=== PATIENT | male | born 1980 | race Two or more races ===

== ENCOUNTER 2020-10-15 11:51 | Emergency (ER) | payer OTHER, SELFPAY ==
--- NOTE | ~2020-10-15 | CT_ITS ---
EXAMINATION: CT ABDOMEN AND PELVIS WITHOUT CONTRAST CLINICAL INFORMATION: Left flank pain. Evaluate for stone. COMPARISON: None TECHNIQUE: Multidetector volumetric imaging was performed from the superior aspect of the liver through the pubic symphysis. Sagittal and coronal reformatted images were obtained on the technologist's workstation. This CT examination was performed using dose optimization techniques as appropriate, variously including the following: *Automated exposure control *Adjustment of mA and/or kV according to patient size (this includes techniques or standardized protocols for targeted exams where dose is matched to indication/reason for exam; i.e. extremities or head) *Use of iterative reconstruction technique DLP: 516 mGy-cm FINDINGS: LUNG BASES: Normal. No pulmonary consolidation or pleural effusion at either lung base. LIVER: The liver has normal size, shape, and attenuation. No evidence of liver mass. GALLBLADDER AND BILIARY TREE: No radiopaque gallstones, wall thickening or pericholecystic fluid. No intrahepatic or extrahepatic bile duct dilatation. PANCREAS: Normal. No evidence of edema, pancreatic ductal dilatation or mass. SPLEEN: Normal. ADRENAL GLANDS: Normal. KIDNEYS AND URETERS: Kidneys are normal in size. No right-sided renal stones. 0.4 cm calyceal stone is present in the lateral interpolar region of the left kidney. Mild left hydronephrosis and perinephric edema are caused by a 0.4 cm stone at the L2-L3 level of the ureter. The distal ureter is unremarkable. BLADDER: Normal. BOWEL AND PERITONEUM: Stomach is unremarkable. No dilated loops of bowel. The appendix is normal. No overt bowel wall thickening or mesenteric fat stranding. No ascites or pneumoperitoneum. ABDOMINAL WALL: Unremarkable. VASCULATURE: Unremarkable. LYMPH NODES: No pathologic sized lymph nodes in the abdomen or pelvis. No inguinal lymphadenopathy. PELVIC VISCERA: Prostate gland, which is normal in size, has calcifications in its more central zones. No pelvic mass or free fluid. SKELETAL: Unremarkable. CT/CT abdomen pelvis wo con IMPRESSION: Mild left hydronephrosis and perinephric edema are caused by a 0.4 cm stone in the proximal ureter. The left kidney has a 0.4 cm calyceal stone, as well. There are no right renal calculi.
[2020-10-15 12:00] VITALS: BP 141/87; PULSE 94; RESP 18; TEMP 36.9; O2SAT 98; BMI 31.5
--- NOTE | 2020-10-15 12:15 | ED.ABDPAIN ---
HPI - Abdominal Pain General Chief Complaint: Abdominal Pain Stated Complaint: abd pain Time Seen by Provider: 10/15/20 12:13 Source: patient and EMS Mode of arrival: EMS Limitations: no limitations History of Present Illness HPI narrative: [age] year male came in for evaluation of lower abdominal pain. Pain started about 2 hours ago, as a sudden onset, pain is localized to the left flank area radiating down to the left groin area, pain started after having bowel movement. Patient describes the pain as constant but comes in waves severity is 10/10, pain is associated with nausea and vomiting. Patient had similar pain in the past when to [facility] but patient does recall what was the diagnosis then. Related Data Previous Rx's Medication Instructions Recorded ondansetron HCl [Zofran] 4 mg PO Q8H PRN #10 tab 10/15/20 oxycodone 5 mg PO Q8H PRN #10 tab 10/15/20 Allergies Allergy/AdvReac Type Severity Reaction Status Date / Time No Known Allergies Allergy Verified 10/15/20 12:02 Review of Systems Review of Systems All other systems are reviewed and are negative Constitutional: Reports as per HPI and Reports no additional constitutional complaints Eyes: Reports as per HPI and Reports no additional eye complaints Reports system reviewed and no additional complaints, except as documented Cardiovascular: Reports as per HPI and Reports no additional cardiovascular complaints Respiratory: Reports as per HPI and Reports no additional respiratory complaints Gastrointestinal: Reports as per HPI and Reports no additional gastrointestinal complaints Genitourinary: Reports no additional female genitourinary complaints Musculoskeletal: Reports no additional musculoskeletal complaints Skin/Breast: Reports system reviewed and no additional complaints, except as docu Psychiatric: Reports no additional psychiatric complaints Endocrine: Reports no additional endocrine complaints Hematologic/Lymphatic: Reports no additional hematologic/lymphatic complaints Allergic/Immunologic: Reports no additional allergic/immunologic complaints Reports system reviewed and no additional complaints, except as documented and Reports Abnormal speech present Physical Exam Vital Signs: Vital Signs: Last Vital Signs Temp 98.4 F 10/15/20 12:00 Pulse 94 10/15/20 12:00 Resp 16 10/15/20 12:57 BP 141/87 H 10/15/20 12:00 Pulse Ox 98 10/15/20 12:00 Body Mass Index 31.5 Vital signs have been reviewed as appeared to be correct. Blood pressure normal. Heart rate normal. Respiration rate normal. Temperature normal. Oxygen saturation normal. Appearance: Alert. Oriented X3. No acute distress. Head: Normal external exam. Normocephalic. Atraumatic. No Shipley signs noted. No raccoon eyes noted Eyes: PERRLA. EOMI. Conjunctiva and sclera normal. Eyelids normal. ENT: TM's Normal. Pharynx normal. Uvula midline. Moist mucous membranes. No trismus noted. No drooling noted. No muffled voice noted. Neck: Normal inspection. Neck supple. FROM. No adenopathy. Thyroid Normal. No meningeal signs. No neck mass noted. CVS: Normal heart rate and rhythm. Heart sound normal. No murmurs noted. Pulses normal throughout. Respiratory: No respiratory distress. Painless inspiration. Breath sounds normal. No wheezes/rales/rhonchi noted. Chest nontender. No accessory muscle usage noted or decreased air movement noted. Abdomen: Soft, left lower abdominal tenderness, no rebound tenderness, no guarding.. Bowel sounds normal in all 4 quadrants. No distention noted. No organomegaly noted. No visible injury noted. Back: Mild left CVA tenderness. Full range of motion noted. Skin: Skin warm and dry. Normal skin color. Normal skin turgor. No rashes/lesions/lacerations noted. Extremities: No lower extremity edema. Extremities exhibit normal range of motion. Extremities nontender. Neuro: Oriented X 3. No motor deficit. No sensory deficit. Reflexes normal. Course Course Course Narrative: Assessment and plan. 40-year-old male came in with abdominal pain/left flank pain. Physical exam, UA, and CT finding are consistent with 4 mm stone at the proximal left ureter. Patient's symptoms is better after pain medication and Zofran. As discussed with the patient discharged to drink plenty of fluids, use Zofran/pain medication as an outpatient. MDM - Abdominal Pain Lab Data Attestation: I reviewed the patient's lab results. Result diagrams: 10/15/20 12:34 10/15/20 12:34 Labs: Lab Results 10/15/20 10/15/20 10/15/20 Range/Units 12:34 12:34 12:34 WBC 6.3 (4.8-10.8) X10*3/uL RBC 4.78 (4.60-5.80) X10*6/uL Hgb 14.0 (14.0-18.0) g/dl Hct 41.2 L (42-52) % MCV 86.2 (80-98) fL MCH 29.3 (27.0-33.0) pg MCHC 34.0 (31.0-36.0) g/dl RDW 12.8 (11.0-16.0) % Plt Count 362 (160-400) X10*3/uL MPV 9.1 L (9.4-12.4) fL Immature Gran % (Auto) 0.6 H (0.0-0.4) % Neut % (Auto) 64.9 (45-73) % Lymph % (Auto) 21.3 (20-40) % Kendall % (Auto) 9.1 (2-11) % Eos % (Auto) 3.2 (0-4) % Baso % (Auto) 0.9 (0-2) % Lymph # (Auto) 1.4 (1.2-4.9) X10*3/uL [place] # (Auto) 0.6 (0.1-1.2) X10*3/uL Eos # (Auto) 0.2 (0.0-0.4) X10*3/uL Baso # (Auto) 0.1 (0.0-0.2) X10*3/uL Abs Immat Gran (auto) 0.04 H (0.00-0.03) X10*3/uL Absolute Neuts (auto) 4.1 (2.0-8.3) X10*3/uL Absolute Nucleated RBC 0.000 (0.0-0.012) X10*3/uL Nucleated RBC % (auto) 0.0 (0.0-0.2) /100WBC Sodium 139 (135-145) mmol/L Potassium 4.3 (3.3-5.1) mmol/L Chloride 104 (96-108) mmol/L Carbon Dioxide 26 (22-29) mmol/L Anion Gap 13 (12-20) BUN 11 (9-16) mg/dL Creatinine 1.08 (0.5-1.4) mg/dL Estim Creat Clear Calc 80.9 Estimated GFR > 60 Random Glucose 111 (60-115) mg/dL Calcium 9.3 (8.4-10.2) mg/dL Total Bilirubin 0.2 (0.0-1.0) mg/dL Direct Bilirubin < 0.2 (0.0-0.5) mg/dL AST 21 (5-37) U/L ALT 28 (0-40) U/L Alkaline Phosphatase 94 (39-117) U/L Total Protein 7.8 (6.5-8.0) g/dL Albumin 4.3 (3.5-5.0) g/dL Lipase 46 (8-78) U/L Urine Color YELLOW Urine Appearance CLEAR Urine pH 6.0 (5.0-8.0) Ur Specific [place] >= 1.030 H (1.005-1.025) Urine Protein NEG (NEG-TRACE) MG/DL Urine Glucose (UA) NEG (NEG) MG/DL Urine Ketones NEG (NEG) MG/DL Urine Blood 3+ H (NEG) Urine Nitrite NEG (NEG) Ur Leukocyte Esterase NEG (NEG) Urine RBC 30-49 H (0) /HPF Urine WBC 0 (0-4) /HPF Ur Squamous Epith Cells 1+ /LPF Urine Bacteria NONE /LPF Urine Mucus 2+ /LPF Imaging Data CT scan - abdomen: Radiologist's impression: Mild left hydronephrosis and perinephric edema are caused by a 0.4 cm stone in the proximal ureter. The left kidney has a 0.4 cm calyceal stone, as well. There are no right renal calculi. Discharge Plan Discharge Clinical Impression: Calculus of kidney Patient Disposition: Home, Self-Care Instructions: Renal Colic (ED) Prescriptions: New ondansetron HCl [Zofran] 4 mg tablet 4 mg PO Q8H PRN (Reason: nausea and vomiting) Qty: 10 RF: 0 oxycodone 5 mg tablet 5 mg PO Q8H PRN (Reason: pain) Qty: 10 RF: 0 Referrals: French Fletcher MD [Physician] - 2 days Stand Alone Forms: Work/School Release [facility] Past Medical History Medical History Gastroparesis Social History Social History Alcohol intake: never Smoked in Last 30 Days: No Use of substances other than those prescribed or required for medical reasons: No Advance Directives: No Advance Directives Information Provided: Yes
[2020-10-15 12:40] LABS: MANUAL DIFF FLAG NO
[2020-10-15 12:42] LABS: Basophils Absolute Auto 0.1 X10*3/uL (0.0-0.2); Basophils Percent Auto 0.9 % (0-2); Eosinophils Absolute Auto 0.2 X10*3/uL (0.0-0.4); Eosinophils Percent Auto 3.2 % (0-4); Hematocrit 41.2 % (42-52); Imm Gran Abs Auto 0.04 X10*3/uL (0.00-0.03); Imm Gran Pct Auto 0.6 % (0.0-0.4); Lymphocytes Absolute Auto 1.4 X10*3/uL (1.2-4.9); Lymphocytes Percent Auto 21.3 % (20-40); Mean Corpuscular Hemoglobin 29.3 pg (27.0-33.0); Mean Corpuscular Volume 86.2 fL (80-98); Mean Platelet Volume 9.1 fL (9.4-12.4); Monocytes Absolute Auto 0.6 X10*3/uL (0.1-1.2); Monocytes Percent Auto 9.1 % (2-11); Neutrophils Absolute Auto 4.1 X10*3/uL (2.0-8.3); Neutrophils Percent Auto 64.9 % (45-73); Platelet Count 362 X10*3/uL (160-400); Red Blood Count 4.78 X10*6/uL (4.60-5.80); Red Cell Distribution Width 12.8 % (11.0-16.0); White Blood Count 6.3 X10*3/uL (4.8-10.8)
[2020-10-15 12:43] LABS: Glucose Urine UA NEG (NEG); Leukocyte Esterase Urine NEG (NEG); Nitrite Urine NEG (NEG); Specific Gravity - Urine >= 1.030 (1.005-1.025); Urine Blood 3+ (NEG); Urine Ketones NEG (NEG); Urine Protein NEG (NEG-TRACE)
[2020-10-15 12:46] LABS: Appearance Urine CLEAR; Color Urine YELLOW
[2020-10-15 12:52] LABS: Mucus Urine 2+ /LPF; RBC Urine 30-49 /HPF (0); Squamous Epithelial Cell Urine 1+ /LPF; WBC Urine 0 /HPF (0-4)
[2020-10-15] MEDS: 0.9 % Sodium Chloride 1,000 ML 999 ML IVCONT (12:54)
[2020-10-15] MEDS: ondansetron HCL 4 MG/2 ML VIAL IVPUSH (12:54)
[2020-10-15] MEDS: Ketorolac Tromethamine 15 MG/ML VIAL IVPUSH (12:55)
[2020-10-15 12:57] VITALS: RESP 16
[2020-10-15] MEDS: Morphine Sulfate 2 MG/ML CARTRIDGE 1 MG IVPUSH (12:57)
[2020-10-15 13:12] LABS: Alanine Aminotransferase 28 U/L (0-40); Albumin Level 4.3 g/dL (3.5-5.0); Alkaline Phosphatase 94 U/L (39-117); Anion Gap 13 (12-20); Aspartate Amino Transferase 21 U/L (5-37); Bilirubin Direct < 0.2 mg/dL (0.0-0.5); Bilirubin Total 0.2 mg/dL (0.0-1.0); Blood Urea Nitrogen 11 mg/dL (9-16); Calcium 9.3 mg/dL (8.4-10.2); Carbon Dioxide 26 mmol/L (22-29); Chloride 104 mmol/L (96-108); Creatinine Clr Calc Pharmacy 80.9; Estimated Glomerular Filt Rate > 60; Glucose Random 111 mg/dL (60-115); Lipase 46 U/L (8-78); Potassium 4.3 mmol/L (3.3-5.1); Sodium 139 mmol/L (135-145); Total Protein 7.8 g/dL (6.5-8.0)
== END 2020-10-15 14:43 | disposition home or self-care (01) ==
PROVIDERS: Emergency Provider Emergency Medicine
DX: N13.2 Hydronephrosis with renal and ureteral calculous obstruction (principal)
CPT/HCPCS: 36415; 74176; 80048; 80076; 81001; 83690; 85025; 96361; 96374; 96375; 99284; J1885; J2270; J2405

== ENCOUNTER → 2020-10-21 11:14 | Outpatient (BNVA) | payer OTHER, SELFPAY | PROVIDERS: Visit Provider Urology | DX: N20.0 Calculus of kidney (principal) | CPT/HCPCS: 99202 ==

== ENCOUNTER 2021-06-08 08:38 | Outpatient (REF) | payer OTHER, SELFPAY ==
--- NOTE | ~2021-06-08 | US_ITS ---
EXAMINATION: US RETROPERITONEAL LIMITED (RENAL ONLY) CLINICAL INFORMATION: Calculus of kidney. COMPARISON: CT abdomen and pelvis 10/15/2020. TECHNIQUE: Real-time imaging of the kidneys. FINDINGS: RIGHT KIDNEY: 11.0 x 4.3 x 5.0 cm (SAG x AP x TRV). The kidney is normal in size, contour, and echogenicity. Renal cortical thickness is normal. No calculi or focal parenchymal lesions. No hydronephrosis. LEFT KIDNEY: 11.0 x 5.0 x 4.5 cm (SAG x AP x TRV). The kidney is normal in size, contour, and echogenicity. Renal cortical thickness is normal. There is a 3 mm echogenic density in the midpole suggestive of a stone. No focal parenchymal lesions or hydronephrosis. US/US renal BI IMPRESSION: Small left renal stone.
== END 2021-06-08 08:39 | disposition home or self-care (01) ==
LOC: HO.US 08:38
PROVIDERS: Visit Provider Urology
DX: N20.0 Calculus of kidney (principal)
CPT/HCPCS: 76775

== ENCOUNTER → 2021-06-15 08:36 | Outpatient (BNVA) | payer OTHER, SELFPAY | PROVIDERS: PCP Internal Medicine | DX: Z13.89 Encounter for screening for other disorder (principal) ==

== ENCOUNTER 2021-08-03 03:10 | Emergency (ER) | payer OTHER, SELFPAY ==
--- NOTE | ~2021-08-03 | CT_ITS ---
EXAMINATION: CT ABDOMEN AND PELVIS WITHOUT CONTRAST CLINICAL INFORMATION: Right flank pain COMPARISON: 10/15/2020 TECHNIQUE: Multidetector volumetric imaging was performed from the superior aspect of the liver through the pubic symphysis. Sagittal and coronal reformatted images were obtained on the technologist's workstation. This CT examination was performed using dose optimization techniques as appropriate, variously including the following: *Automated exposure control *Adjustment of mA and/or kV according to patient size (this includes techniques or standardized protocols for targeted exams where dose is matched to indication/reason for exam; i.e. extremities or head) *Use of iterative reconstruction technique DLP: 535 mGy-cm FINDINGS: LUNG BASES: The visualized lung bases are unremarkable. LIVER, GALLBLADDER, AND BILIARY TREE: The liver is normal in size, shape, and attenuation. No focal hepatic lesion or biliary ductal dilatation is present. The gallbladder is unremarkable with no evidence of radiopaque gallstones, gallbladder wall thickening, or obvious pericholecystic inflammatory changes. PANCREAS: Unremarkable. SPLEEN: Unremarkable. ADRENAL GLANDS: Unremarkable. KIDNEYS AND URETERS: The kidneys are normal in size, shape, and attenuation. Mild right hydroureteronephrosis. No ureteral obstructing calculus at this time. There is a 0.2 cm calculus dependently within the bladder lumen. There is a right midpole 0.3 cm calculus which is 10.5 cm from the posterior axillary line. BLADDER: 0.2 cm dependent calculus. Partially distended bladder without focal wall thickening. GASTROINTESTINAL TRACT: The small and large bowel are unremarkable. The appendix is unremarkable. ABDOMINAL WALL: No significant hernia is appreciated. LYMPH NODES: Normal. VASCULAR: Unremarkable. PELVIC VISCERA: Coarse calcifications of the prostate. The seminal vesicles are unremarkable. OSSEOUS STRUCTURES: Unremarkable. CT/CT abdomen pelvis wo con IMPRESSION: Mild right hydroureteronephrosis likely associated with a passed stone layering dependently in the bladder at this time. Additional nonobstructing right-sided renal calculus. Fleischner guidelines were followed.
[2021-08-03 03:17] VITALS: BP 139/73; PULSE 88; RESP 18; TEMP 36.7; O2SAT 100; BMI 28.7
[2021-08-03 03:30] LABS: Hematocrit 41.6 % (42.0-52.0); Hemoglobin 14.2 g/dl (14.0-18.0); Mean Corpuscular HGB Conc 34.1 g/dl (31.0-36.0); Mean Corpuscular Hemoglobin 29.2 pg (27.0-33.0); Mean Corpuscular Volume 85.4 fL (80.0-98.0); Mean Platelet Volume 9.2 fL (9.4-12.4); Platelet Count 405 X10*3/uL (160-400); Red Blood Count 4.87 X10*6/uL (4.60-5.80); White Blood Count 8.5 X10*3/uL (4.8-10.8)
--- NOTE | 2021-08-03 03:42 | ED.ABDPAIN ---
HPI - Abdominal Pain General Chief Complaint: Abdominal Pain Stated Complaint: R side sharp pain, urinating blood, vomiting Time Seen by Provider: 08/03/21 03:36 Source: patient Mode of arrival: ambulatory History of Present Illness HPI narrative: 41-year-old male with history of renal colic presents with onset of right flank pain, sharp in nature, and radiating into the anterior abdomen for approximately 1 hour that woke him up from sleep and has been associated with hematuria as well as nausea, vomiting. Otherwise, he denies any fever chills and states he is having some difficulty with urination. Related Data Home Medications Medication Instructions Recorded Confirmed No Known Home Meds 08/03/21 08/03/21 Allergies Allergy/AdvReac Type Severity Reaction Status Date / Time No Known Allergies Allergy Verified 06/15/21 08:38 Review of Systems Review of Systems Pertinent positives and negatives as stated in HPI 10 point review of systems is otherwise negative. PMFSH Past Medical History Source: nursing notes reviewed Medical History Gastroparesis Social History Social History Alcohol intake: never Advance Directives: No Advance Directives Information Provided: Yes Physical Exam ED Vital Signs: Vital Signs - 24 hr 08/03/21 03:17 08/03/21 03:57 08/03/21 04:20 Temperature 98.1 F Pulse Rate 88 71 Respiratory Rate 18 14 16 Blood Pressure 139/73 Pulse Oximetry 100 96 97 BMI result Body Mass Index 28.7 VITAL SIGNS: Reviewed. GENERAL: Well developed, well nourished, in no acute distress. HEAD: Normocephalic/atraumatic EYES: PERRLA, EOMI EARS: Ext canals without abnormality OROPHARYNX: no oral lesions noted, posterior pharynx clear LUNGS: Normal breath sounds. No adventitious sounds or accessory muscle use. SpO2<100> CARDIOVASCULAR: Regular rate and rhythm without noted murmurs ABDOMEN: Soft, minimal tenderness on palpation at right lower quadrant, non-distended with bowel sounds, no CVA tenderness. NEUROLOGIC: Alert and oriented x 4. Strength and sensation to light touch were grossly intact x 4. Course Course Course Narrative: 41-year-old male with history and clinical presentation most consistent with renal colic and doubt appendicitis or UTI. Review of all investigations significant for evidence of a passed renal stone, patient is feeling much better after having received pain medication IV fluids. He is otherwise discharged home in stable condition with instructions follow-up with Urology. MDM - Abdominal Pain Lab Data Result diagrams: 08/03/21 03:19 08/03/21 03:19 Labs: Lab Results 08/03/21 08/03/21 08/03/21 Range/Units 03:19 03:19 03:19 WBC 8.5 (4.8-10.8) X10*3/uL RBC 4.87 (4.60-5.80) X10*6/uL Hgb 14.2 (14.0-18.0) g/dl Hct 41.6 L (42.0-52.0) % MCV 85.4 (80.0-98.0) fL MCH 29.2 (27.0-33.0) pg MCHC 34.1 (31.0-36.0) g/dl RDW 13.0 (11.0-16.0) % Plt Count 405 H (160-400) X10*3/uL MPV 9.2 L (9.4-12.4) fL Absolute Nucleated RBC 0.000 (0.0-0.012) X10*3/uL Nucleated RBC % (auto) 0.0 (0.0-0.2) /100WBC Sodium 138 (135-145) mmol/L Potassium 3.8 (3.3-5.1) mmol/L Chloride 104 (96-108) mmol/L Carbon Dioxide 22 (22-29) mmol/L Anion Gap 16 (12-20) BUN 12 (9-16) mg/dL Creatinine 1.09 (0.5-1.4) mg/dL Estim Creat Clear Calc 81.7 Estimated GFR > 60 Random Glucose 127 H (60-115) mg/dL Calcium 9.3 (8.4-10.2) mg/dL Total Bilirubin 0.2 (0.0-1.0) mg/dL AST 27 (5-37) U/L ALT 35 (0-40) U/L Alkaline Phosphatase 96 (39-117) U/L Total Protein 7.7 (6.5-8.0) g/dL Albumin 4.2 (3.5-5.0) g/dL Urine Color Urine Appearance Urine pH (5.0-8.0) Ur Specific [place] (1.005-1.025) Urine Protein (NEG-TRACE) MG/DL Urine Glucose (UA) (NEG) MG/DL Urine Ketones (NEG) MG/DL Urine Blood (NEG) Urine Nitrite (NEG) Ur Leukocyte Esterase (NEG) Urine RBC (0) /HPF Urine WBC (0-4) /HPF Ur Squamous Epith Cells /LPF Urine Bacteria /LPF Urine Mucus /LPF COVID-19 (ALIRIO) Negative (Negative) COVID-19 Clin Com See Note 08/03/21 Range/Units 05:09 WBC (4.8-10.8) X10*3/uL RBC (4.60-5.80) X10*6/uL Hgb (14.0-18.0) g/dl Hct (42.0-52.0) % MCV (80.0-98.0) fL MCH (27.0-33.0) pg MCHC (31.0-36.0) g/dl RDW (11.0-16.0) % Plt Count (160-400) X10*3/uL MPV (9.4-12.4) fL Absolute Nucleated RBC (0.0-0.012) X10*3/uL Nucleated RBC % (auto) (0.0-0.2) /100WBC Sodium (135-145) mmol/L Potassium (3.3-5.1) mmol/L Chloride (96-108) mmol/L Carbon Dioxide (22-29) mmol/L Anion Gap (12-20) BUN (9-16) mg/dL Creatinine (0.5-1.4) mg/dL Estim Creat Clear Calc Estimated GFR Random Glucose (60-115) mg/dL Calcium (8.4-10.2) mg/dL Total Bilirubin (0.0-1.0) mg/dL AST (5-37) U/L ALT (0-40) U/L Alkaline Phosphatase (39-117) U/L Total Protein (6.5-8.0) g/dL Albumin (3.5-5.0) g/dL Urine Color YELLOW Urine Appearance CLOUDY Urine pH 6.0 (5.0-8.0) Ur Specific [place] >= 1.030 H (1.005-1.025) Urine Protein 1+ H (NEG-TRACE) MG/DL Urine Glucose (UA) NEG (NEG) MG/DL Urine Ketones NEG (NEG) MG/DL Urine Blood 3+ H (NEG) Urine Nitrite NEG (NEG) Ur Leukocyte Esterase NEG (NEG) Urine RBC TNTC H (0) /HPF Urine WBC 0 (0-4) /HPF Ur Squamous Epith Cells 1+ /LPF Urine Bacteria NONE /LPF Urine Mucus 1+ /LPF COVID-19 ([facility]IRIO) (Negative) COVID-19 Clin Com Discharge Plan Discharge Clinical Impression: Renal colic, Hydroureteronephrosis Patient Disposition: Home, Self-Care Instructions: Renal Colic (ED), Hydronephrosis (ED) Additional Instructions: 1. Increase the amount of fluid, especially water that you drink and decrease The amount of caffeinated/carbonated beverages as much as possible. 2. You have been provided with a referral to follow-up with urology below. 3. You should follow-up with your primary care provider in the next 2-3 days for re-evaluation. Return to the ER for worsening symptoms. Prescriptions: No Action No Known Home Meds 0RF Referrals: French Fletcher MD [Physician] - Stand Alone Forms: Work/School Release
[2021-08-03 03:47] LABS: COVID-19 Test Negative (Negative); IDNOW Serial# 16C4AD1C
[2021-08-03] MEDS: 0.9 % Sodium Chloride 1,000 ML 999 ML IV (03:49)
[2021-08-03] MEDS: Ketorolac Tromethamine 30 MG/ML VIAL 15 MG IVPUSH (03:50)
[2021-08-03 03:57] VITALS: PULSE 71; RESP 14; O2SAT 96
[2021-08-03 04:18] LABS: Alanine Aminotransferase 35 U/L (0-40); Albumin Level 4.2 g/dL (3.5-5.0); Alkaline Phosphatase 96 U/L (39-117); Anion Gap 16 (12-20); Aspartate Amino Transferase 27 U/L (5-37); Bilirubin Total 0.2 mg/dL (0.0-1.0); Blood Urea Nitrogen 12 mg/dL (9-16); Calcium 9.3 mg/dL (8.4-10.2); Carbon Dioxide 22 mmol/L (22-29); Chloride 104 mmol/L (96-108); Creatinine Clr Calc Pharmacy 81.7; Estimated Glomerular Filt Rate > 60; Glucose Random 127 mg/dL (60-115); Potassium 3.8 mmol/L (3.3-5.1); Sodium 138 mmol/L (135-145); Total Protein 7.7 g/dL (6.5-8.0)
[2021-08-03 04:20] VITALS: RESP 16; O2SAT 97
[2021-08-03 05:22] LABS: Appearance Urine CLOUDY; Color Urine YELLOW; Glucose Urine UA NEG (NEG); Leukocyte Esterase Urine NEG (NEG); Nitrite Urine NEG (NEG); Specific Gravity - Urine >= 1.030 (1.005-1.025); UACC Culture Trigger NO; Urine Blood 3+ (NEG); Urine Ketones NEG (NEG); Urine Protein 1+ MG/DL (NEG-TRACE)
[2021-08-03 05:30] LABS: RBC Urine TNTC /HPF (0); WBC Urine 0 /HPF (0-4)
[2021-08-03 05:31] LABS: Mucus Urine 1+ /LPF; Squamous Epithelial Cell Urine 1+ /LPF
[2021-08-03 06:04] VITALS: BP 110/75; PULSE 64; RESP 14; O2SAT 98
== END 2021-08-03 06:27 | disposition home or self-care (01) ==
PROVIDERS: Emergency Provider Student in an Organized Health Care Education/Training Program
DX: N23 Unspecified renal colic (principal); N13.30 Unspecified hydronephrosis; Z20.822 Contact with and (suspected) exposure to COVID-19
CPT/HCPCS: 74176; 80053; 81001; 85027; 87635; 96361; 96374; 99284; J1885

== ENCOUNTER 2021-11-20 13:07 | Outpatient (REF) | payer OTHER, SELFPAY ==
--- NOTE | ~2021-11-20 | US_ITS ---
EXAMINATION: US RETROPERITONEAL LIMITED (RENAL ONLY) CLINICAL INFORMATION: Calculus of kidney. COMPARISON: CT abdomen and pelvis 08/03/2021. TECHNIQUE: Real-time imaging of the kidneys. FINDINGS: RIGHT KIDNEY: 10.3 x 4.2 x 6.0 cm (SAG x AP x TRV). The kidney is normal in size, contour, and echogenicity. Renal cortical thickness is normal. No calculi or focal parenchymal lesions. No hydronephrosis. LEFT KIDNEY: 10.0 x 5.6 x 5.6 cm (SAG x AP x TRV). The kidney is normal in size, contour, and echogenicity. Renal cortical thickness is normal. No calculi or focal parenchymal lesions. No hydronephrosis. US/US renal BI IMPRESSION: Normal renal ultrasound. The right renal calculus and right hydroureteronephrosis seen on the prior CT scan are not seen on ultrasound.
== END 2021-11-20 13:08 | disposition home or self-care (01) ==
LOC: HO.US 13:07
DX: N20.0 Calculus of kidney (principal)
CPT/HCPCS: 76775

== ENCOUNTER 2022-03-06 07:50 | Outpatient (REF) | payer OTHER, SELFPAY ==
[2022-03-06 08:14] LABS: Hematocrit 43.9 % (42.0-52.0); Hemoglobin 14.6 g/dl (14.0-18.0); Mean Corpuscular HGB Conc 33.3 g/dl (31.0-36.0); Mean Corpuscular Volume 87.1 fL (80.0-98.0); Mean Platelet Volume 9.3 fL (9.4-12.4); NRBC Pct Auto 0.4 /100WBC (0.0-0.2); Platelet Count 381 X10*3/uL (160-400); Red Blood Count 5.04 X10*6/uL (4.60-5.80); White Blood Count 5.5 X10*3/uL (4.8-10.8)
[2022-03-06 09:09] LABS: Alanine Aminotransferase 31 U/L (0-40); Albumin Level 4.3 g/dL (3.5-5.0); Alkaline Phosphatase 95 U/L (39-117); Anion Gap 13 (12-20); Aspartate Amino Transferase 20 U/L (5-37); Bilirubin Total 0.5 mg/dL (0.0-1.0); Blood Urea Nitrogen 9 mg/dL (9-16); Calcium 9.5 mg/dL (8.4-10.2); Carbon Dioxide 26 mmol/L (22-29); Chloride 105 mmol/L (96-108); Cholesterol 179 mg/dL; Estimated Glomerular Filt Rate > 60; Glucose Fasting 96 mg/dL (60-99); HDL Cholesterol 27 mg/dL; LDL Cholesterol Calculated 103 mg/dl; Potassium 4.4 mmol/L (3.3-5.1); Sodium 140 mmol/L (135-145); TSH reflex Free T4 1.67 uIU/mL (0.32-4.0); Total Protein 7.5 g/dL (6.5-8.0); Triglycerides 245 mg/dL
[2022-03-07 11:48] LABS: Calcium (PTHI) 9.2 mg/dL (8.6-10.3); PTHI 95 pg/mL (16-77)
== END 2022-03-06 07:51 | disposition home or self-care (01) ==
LOC: HO.LAB 07:50
PROVIDERS: PCP Physician Assistant; Visit Provider Physician Assistant
DX: Z13.29 Encounter for screening for other suspected endocrine disorder (principal); Z13.220 Encounter for screening for lipoid disorders; N20.0 Calculus of kidney
CPT/HCPCS: 36415; 80053; 80061; 83970; 84443; 85027

== ENCOUNTER 2022-11-20 09:14 | Outpatient (REF) | payer OTHER, SELFPAY ==
--- NOTE | ~2022-11-20 | US_ITS ---
EXAMINATION: US RETROPERITONEAL LIMITED (RENAL ONLY) CLINICAL INFORMATION: Calculus of kidney. COMPARISON: Renal ultrasound 11/20/2021 and 06/08/2021. CT abdomen and pelvis 08/03/2021. TECHNIQUE: Real-time imaging of the kidneys. FINDINGS: RIGHT KIDNEY: 11.0 x 4.0 x 4.7 cm (SAG x AP x TRV). The kidney is normal in size, contour, and echogenicity. Renal cortical thickness is normal. No calculi or focal parenchymal lesions. No hydronephrosis. LEFT KIDNEY: 10.5 x 5.1 x 4.6 cm (SAG x AP x TRV). The kidney is normal in size, contour, and echogenicity. Renal cortical thickness is normal. No focal parenchymal lesions. No hydronephrosis. At the lower pole, a 2 mm nonobstructing calculus is suspected, with twinkle artifact. US/US renal BI IMPRESSION: A 2 mm left renal lower pole calculus is suspected, corresponding with the prior CT findings. No right renal calculus is presently seen. There is no hydronephrosis noted bilaterally.
== END 2022-11-20 09:15 | disposition home or self-care (01) ==
LOC: HO.US 09:14
PROVIDERS: PCP Physician Assistant; Visit Provider Urology
DX: N20.0 Calculus of kidney (principal)
CPT/HCPCS: 76775

== ENCOUNTER 2022-12-04 11:11 | Outpatient (AMB) | payer OTHER, SELFPAY ==
--- NOTE | 2022-12-04 11:17 | MHC.OFFVIS ---
Intake Intake Visit Reasons: 1Y US(set) Intake Note: Patient is present for Follow Up US Urology Med: None Antibiotic Allergy: None Blood Thinner: None Pharmacy: [facility] Required: No Allergies No Known Allergies Allergy (Verified 12/04/22 11:22) Medication List - Last Reconciled 12/04/22 by French Fletcher MD albuterol sulfate 90 mcg/actuation (Ventolin HFA) 1 inh inhalation QID 30 days meloxicam 15 mg PO DAILY PRN 30 days metronidazole 0.75% 1 appl topical BEDTIME PRN 30 days pyridoxine (vitamin B6) 50 mg PO DAILY 90 days sumatriptan succinate take 1 tab at onset of headache; if no relief may repeat 1 tab after at least 2 hrs; max = 4 tabs/24 hr PO 30 days HPI HPI Comments History of Present Illness Details Louis is a pleasant male. He is seen for the following urologic issues - nephrolithiasis Encourage fluids Start vitamin B6 12 month imaging Nephrolithiasis Recent evaluation at [facility] Imaging - 08/13 CT distal right ureteric stone and right renal stone 4 mm - 11/14 renal ultrasound evidence of stones Family history of stones with his father Twelve month follow-up [facility] Medical History Gastroparesis Surgical History No pertinent past surgical history Family History Other Mental health disorder Social History Housing: Apartment Alcohol intake: current Alcohol intake frequency: holidays/special occasions only Patient Tobacco Use Status: Never used Tobacco e-Cigarette/Vaping Use: Never Used Second Hand Smoke Exposure: No Substance Use Type: Marijuana service: No Current occupational status: employed 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 Cognitive needs: No Hearing needs: No Vision needs: No Review of Systems Const Denies chills and Denies fever(s) Card Reports no additional complaints and Denies syncope Resp Denies cough GI Denies abdominal pain and Denies heartburn Reports as per HPI and Denies change in libido Neuro Denies syncope Psych Denies change in libido Endo Denies change in libido Physical Exam Const General: cooperative, healthy appearing, comfortable and no acute distress Orientation/consciousness: patient oriented x3 HEENT Face and sinus: Yes normal facial exam Mouth: moist mucous membranes Neck Neck: Yes normal visual inspection, Yes full ROM and Yes trachea midline Chest Chest palpation & inspection: normal inspection of the chest Resp Effort & Inspection: normal respiratory effort, able to speak in complete sentences and no respiratory distress GI Inspection: Yes normal to inspection Back/Spine/Pelvis Cervical Spine: normal cervical lordosis Thoracic/Lumbar Spine: thoracic and lumbar spine normal to inspection Skin General skin exam: no rashes or lesions noted Neuro General: patient oriented x3, gait normal, tone normal and moves all extremities Extrem General: Yes normal to inspection and Yes capillary refill normal Assessment & Plan Assessment & Plan (1) Nephrolithiasis: Code(s): N20.0 - Calculus of kidney Plan 12 month follow-up Orders: Orders US renal BI 364 Days N20.0 - Calculus of kidney Medications: New pyridoxine (vitamin B6) 50 mg PO DAILY 90 days 90 tabs 3RF N13.2 - Hydronephrosis with renal and ureteral calculous obstruction, N20.0 - Calculus of kidney Patient Instructions: Imaging studies, laboratory and physical exam results were discussed and reviewed in detail. No major barriers to patient understanding were identified. An opportunity to ask questions regarding the treatment plan was provided. All questions were answered. The patient expressed understanding and agreement with the above treatment plan. The patient is aware they should contact our office by phone for worsening of their current condition or the appearance of new urologic symptoms. Compliance is encouraged with any medications and followup testing that is ordered. It is a privilege to participate in the urologic care of your patient. If you have any questions or concerns regarding treatment for the above conditions, or other urologic issues, please do not hesitate to contact me. The office telephone contact is [phone]. This note is constructed using voice recognition software. While every effort has been made to ensure accuracy professor of family medicine errors may have been included. Yours sincerely, Dr French Fletcher MD, [facility] - Urology Providers of Expert, Compassionate Care for the Genitourinary System Coding Level of Care Code Est Pt Level 4 (57722) Diagnoses Nephrolithiasis N20.0
== END 2022-12-04 11:39 | disposition home or self-care (01) ==
PROVIDERS: PCP Physician Assistant; Visit Provider Urology
DX: N20.0 Calculus of kidney (principal)
CPT/HCPCS: 99213

== ENCOUNTER → 2022-12-04 11:11 | Outpatient (BNVA) | payer OTHER, SELFPAY | PROVIDERS: Visit Provider Urology | DX: N20.0 Calculus of kidney (principal) | CPT/HCPCS: 99212 ==

== ENCOUNTER 2023-04-02 08:09 | Outpatient (REF) | payer OTHER, SELFPAY ==
[2023-04-02 09:17] LABS: Hematocrit 43.3 % (42.0-52.0); Hemoglobin 14.4 g/dl (14.0-18.0); Mean Corpuscular HGB Conc 33.3 g/dl (31.0-36.0); Mean Corpuscular Hemoglobin 28.5 pg (27.0-33.0); Mean Corpuscular Volume 85.7 fL (80.0-98.0); Mean Platelet Volume 9.3 fL (9.4-12.4); Platelet Count 438 X10*3/uL (160-400); Red Blood Count 5.05 X10*6/uL (4.60-5.80); Red Cell Distribution Width 13.3 % (11.0-16.0)
[2023-04-02 09:56] LABS: Alanine Aminotransferase 36 U/L (0-40); Albumin Level 4.3 g/dL (3.5-5.0); Alkaline Phosphatase 79 U/L (39-117); Anion Gap 10 (12-20); Aspartate Amino Transferase 25 U/L (5-37); Bilirubin Total 0.4 mg/dL (0.0-1.0); Blood Urea Nitrogen 15 mg/dL (9-16); Calcium 9.4 mg/dL (8.4-10.2); Carbon Dioxide 26 mmol/L (22-29); Chloride 108 mmol/L (96-108); Cholesterol 182 mg/dL (<200); Estimated Glomerular Filt Rate > 60; Glucose Fasting 95 mg/dL (60-99); HDL Cholesterol 26 mg/dL (>40); LDL Cholesterol Calculated 118 mg/dL (<100); Sodium 140 mmol/L (135-145); Total Protein 8.1 g/dL (6.5-8.0); Triglycerides 193 mg/dL (<150)
== END 2023-04-02 08:10 | disposition home or self-care (01) ==
LOC: HO.LAB 08:09
PROVIDERS: PCP Physician Assistant; Visit Provider Physician Assistant
DX: E78.1 Pure hyperglyceridemia (principal); Z13.1 Encounter for screening for diabetes mellitus
CPT/HCPCS: 36415; 80053; 80061; 85027

== ENCOUNTER 2023-04-04 08:14 | Outpatient (AMB) | payer OTHER, SELFPAY ==
[2023-04-04 08:18] VITALS: BP 118/72; PULSE 63; O2SAT 99; BMI 30.4
--- NOTE | 2023-04-04 08:18 | MHC.PC.OV ---
Vital Signs 04/04/23 08:18 Height 5 ft 4 in Weight 177 lb BMI 30.4 BP 118/72 Blood Pressure Location Lt brachial Position Sitting Pulse 63 Pulse Source Pulse Oximeter Pulse Oximetry (%) 99 Oxygen Delivery Method Room Air Intake Visit Reasons: follow up Allergies No Known Allergies Allergy (Verified 04/04/23 08:24) Medication List - Last Reconciled 04/04/23 by Sukh Pena PA-C albuterol sulfate 90 mcg/actuation (Ventolin HFA) 1 inh inhalation QID 30 days meloxicam 15 mg PO DAILY PRN 30 days metronidazole 0.75% 1 appl topical BEDTIME PRN 30 days pyridoxine (vitamin B6) 50 mg PO DAILY 90 days sumatriptan succinate take 1 tab at onset of headache; if no relief may repeat 1 tab after at least 2 hrs; max = 4 tabs/24 hr PO 30 days Tobacco use date assessed: 04/04/23 Dental Screening Dental Screen Date: 04/04/23 Did you have a dental visit in the last 12 months?: No Did you have a dental problem in the last 6 months where you did not have access to dental care?: No Was dental information given to patient?: No HPI follow up HPI Details Patient is a 43-year-old male here today for a follow-up visit.? Patient has a past medical history significant for nephrolithiasis, asthma, migraines. Migraines: Have been much better with p.r.n. use of sumatriptan. Still has discomfort over his left ear as he feels it feels congested and clogged. No difficulty with hearing though occasionally does have muffled sound. /.. Nephrolithitasis:? Followed by Urology, nephrolithiasis has been stable and has not had any recent renal colic. He is getting surveillance renal ultrasounds. .. Asthma: had asthma as a child , his asthma has been well controlled with only seldom use of his albuterol inhaler. ? Laboratory Tests 03/06/22 04/02/23 04/02/23 08:03 08:33 08:33 RBC 5.05 Creatinine 0.95 Fasting Glucose 95 Triglycerides 245 193 H Cholesterol 182 LDL Cholesterol, C alc 118 H [facility] Medical History Gastroparesis Surgical History No pertinent past surgical history Family History Other Mental health disorder Social History Housing: Apartment Alcohol intake: current Alcohol intake frequency: holidays/special occasions only Patient Tobacco Use Status: Never used Tobacco e-Cigarette/Vaping Use: Never Used Second Hand Smoke Exposure: No Substance Use Type: Marijuana service: No Current occupational status: employed 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 1. Little interest or pleasure in doing things: not at all 2. Feeling down, depressed, or hopeless: not at all 3. Trouble falling or staying asleep, or sleeping too much: not at all 4. Feeling tired or having little energy: not at all 5. Poor appetite or overeating: not at all 6. Feeling bad about yourself - or that you are a failure or have let yourself or your family down: not at all 7. Trouble concentrating on things, such as reading the newspaper or watching television: not at all 8. Moving or speaking so slowly that other people could have noticed. Or the opposite - being so fidgety or restless that you have been moving around a lot more than usual: not at all 9. Thoughts that you would be better off or of hurting yourself in some way: not at all Total score: 0 Depression Screening Interpretation: Negative Depression Screening Done: Yes 92949 - PHQ-9 Billing: Yes Source: Developed by Drs. Javid Moraes, Claudine Russell, Richy Patel and colleagues, with an educational monet from [employer]. Thrive Questionnaire Date Thrive assessed: 04/04/23 I am a: Patient What is your living situation today?: I have a steady place to live Within the past 12 months, did the food you bought not last and you didn't have the money to get more?: Never true Within the past 12 months, did you worry whether your food would run out before you got money to buy more?: Never true Do you have trouble paying for medicines?: No Do you have trouble getting transportation to medical appointments?: No Do you have trouble paying your heating and electricity bill?: No Do you have trouble taking care of your child, family member or friend?: No Do you have trouble with day-to-day activities such as bathing, preparing meals, shopping, managing finances, etc.?: No Are you currently unemployed and looking for a job?: No Are you interested in more education?: No Currently or been in a relationship where the following occur: no concerns reported AUDIT C Alcohol Use Questionnaire (AUDIT-C) 1. How often do you have a drink containing alcohol?: Never Total Score: 0 MCKAYLA-7 AMB Questionnaire MCKAYLA-7 Date MCKAYLA - 7 assessed: 04/04/23 Feeling nervous, anxious, or on edge: 0 = Not at all Not being able to stop or control worryin = Not at all Worrying too much about different things: 0 = Not at all Trouble relaxin = Not at all Being so restless that it is hard to sit still: 0 = Not at all Becoming easily annoyed or irritable: 0 = Not at all Feeling afraid as if something awful might happen: 0 = Not at all Total MCKAYLA-7 score (0-4 normal; 5-9 mild; 10-14 moderate; 15-21 severe): 0 Source: Developed by Drs. Javid Moraes, Claudine Russell, Richy Patel and colleagues, with an educational monet from [employer]. MCKAYLA-7 Assessment Billing MCAKYLA-7 Assessment Tool: MCKAYLA-7 Assessment 80361 ACT Questionnaire In the past 4 weeks, how much of the time did your asthma keep you from getting as much done at work, school or at home?: None of the time During the past 4 weeks, how often have you had shortness of breath?: Not at all During the past 4 weeks, how often did your asthma symptoms wake you up at night or earlier than usual in the morning?: Not at all During the past 4 weeks, how often have you had to use your rescue inhaler or nebulizer medication?: Not at all How would you rate your asthma control during the past 4 weeks?: Completely controlled ACT Interpretation: Negative Score: 25 Review of Systems Const Denies headache(s) Eyes Denies loss of vision ENT Denies vertigo, Denies dizziness, Denies headache(s) and Denies sore throat Card Denies chest pain, Denies leg edema and Denies lightheadedness Resp Denies cough, Denies hemoptysis and Denies wheezing GI Denies abdominal pain, Denies melena, Denies constipation, Denies diarrhea and Denies vomiting Denies dysuria, Denies urinary frequency and Denies urinary urgency Musc Denies arthralgias, Denies joint swelling, Denies numbness and Denies tingling Neuro Denies Abnormal speech present, Denies behavioral changes, Denies vertigo, Denies dizziness, Denies headache(s), Denies loss of vision, Denies memory loss, Denies numbness and Denies tingling Psych Denies anxiety, Denies behavioral changes, Denies depression, Denies memory loss and Denies panic attacks Amado/Lymph Denies easy bleeding and Denies easy bruising Aller/Immun Denies wheezing Physical exam (Primary Care) Vital Signs: Last Vital Signs Pulse 63 04/04/23 08:18 BP 118/72 04/04/23 08:18 Pulse Ox 99 04/04/23 08:18 Oxygen Delivery Method Room Air 04/04/23 08:18 BMI result Body Mass Index 30.4 BMI Assessment/Plan discussion: High Tobacco/Smoking Status: Tobacco use Status Tobacco use date assessed 04/04/23 04/04/23 08:22 Patient Tobacco Use Status Never used Tobacco 04/04/23 08:22 e-Cigarette/Vaping Use Never Used 04/04/23 08:22 PHQ-9: PHQ-9 Score PHQ-9: Total score 0 04/04/23 08:22 Depression Screening Interpretation: Negative Thrive Assessment: Date of Thrive Assessment Date Thrive assessed 04/04/23 04/04/23 08:22 Currently or been in a relationship where the following occur: no concerns reported Const Other: Obese General: healthy appearing, no acute distress, alert and awake Nutritional Appearance: well nourished Orientation/consciousness: oriented to person, oriented to place and oriented to time HENMT Ears: TM's normal bilaterally General nose exam: Normal nasal mucous membranes and turbinates present Eyes Conjunctivae: conjunctivae normal Sclerae: sclerae normal Pupils: Equal, round and reactive pupils present Neck Neck: Yes no lymphadenopathy and Yes no JVD Thyroid: Thyroid normal Carotids: no bruits Resp Effort & Inspection: normal respiratory effort and not tachypneic Auscultation: no crackles, no rales, no rhonchi and no wheezes Cardio Rate: regular rate Rhythm: regular rhythm Heart sounds: no murmurs and normal S1 and S2 GI Palpation (GI): Soft to palpation, nontender, no hepatomegaly and no splenomegaly Auscultation: normal bowel sounds Skin General skin exam: no rashes or lesions noted and dry skin Neuro General: oriented to person, oriented to place and oriented to time Cranial nerves: Yes Equal, round and reactive pupils present Speech: No Abnormal speech present Gait exam (Neuro): Normal gait present Motor exam (neuro): no tremor noted Extrem Right upper extremity: full ROM Left upper extremity: full ROM Right lower extremity: full ROM; no edema Left lower extremity: full ROM; no edema Psych Mental Status: mental status grossly normal Speech and movement: Normal speech and movement present Affect: normal affect Attitude: cooperative Thought process: Normal thought process present Assessment and Plan Assessment & Plan (1) Asthma: Code(s): J45.909 - Unspecified asthma, uncomplicated Qualifiers: Asthma severity: mild Asthma persistence: intermittent Asthma complication type: uncomplicated Qualified Code(s): J45.20 - Mild intermittent asthma, uncomplicated Plan: Asthma has been well controlled with only p.r.n. use of albuterol inhaler, denies any nighttime awakenings with asthma symptoms are recent asthma exacerbations. (2) Congestion of left ear: Code(s): H93.8X2 - Other specified disorders of left ear Plan: Patient's signs symptoms are concerning for a station tube dysfunction. Does 2+ tonsils noted on physical exam. Left-sided TM without bulging, air-fluid level or erythema.. Advised on nasal spray and allergy medication to help clear the middle ear (3) Obese: Code(s): E66.9 - Obesity, unspecified Qualifiers: Obesity type: due to excess calories Obesity classification: adult class 1 (BMI 30 - 34.9) Serious obesity comorbidity presence: without serious comorbidity Body mass index: BMI 30.0-30.9 Qualified Code(s): E66.09 - Other obesity due to excess calories; Z68.30 - Body mass index [BMI] 30.0-30.9, adult Plan: Patient does understand his BMI is over 30 will continue working on being more physically active and adapting to better eating habits to reduce his weight (4) Hypertriglyceridemia: Code(s): E78.1 - Pure hyperglyceridemia Plan: Most recent labs showing borderline high triglycerides. Advised to work on lifestyle modifications and reducing high triglyceride foods in his diet. (5) Migraine: Code(s): G43.909 - Migraine, unspecified, not intractable, without status migrainosus Qualifiers: Migraine type: without aura Status migrainosus presence: without status migrainosus Intractability: not intractable Qualified Code(s): G43.009 - Migraine without aura, not intractable, without status migrainosus Plan: Has started on p.r.n. use of sumatriptan which has been helpful. Still has left-sided congested feeling around his left ear and left-sided neck. Orders: Orders Comprehensive [place]. Panel Fast 9 Months Z13.1 - Encounter for screening for diabetes mellitus Lipid Panel 9 Months E78.1 - Pure hyperglyceridemia Medications: New loratadine 10 mg PO DAILY 30 days 30 tabs 1RF H93.8X2 - Other specified disorders of left ear fluticasone propionate 50 mcg/actuation (Flonase Allergy Relief) administer into each nostril 1 spray intranasal DAILY 30 days 16 grams 1RF H93.8X2 - Other specified disorders of left ear Coding Level of Care Code Est Pt Level 4 (09222) Diagnoses Mild intermittent asthma without complication J45.20 Asthma severity: mild Asthma persistence: intermittent Asthma complication type: uncomplicated Congestion of left ear H93.8X2 Class 1 obesity due to excess calories without serious comorbidity with body mass index (BMI) of 30.0 to 30.9 in adult E66.09; Z68.30 Obesity type: due to excess calories Obesity classification: adult class 1 (BMI 30 - 34.9) Serious obesity comorbidity presence: without serious comorbidity Body mass index: BMI 30.0-30.9 Hypertriglyceridemia E78.1 Migraine without aura and without status migrainosus, not intractable G43.009 Migraine type: without aura Status migrainosus presence: without status migrainosus Intractability: not intractable Additional Codes MCKAYLA-7 Assessment Billing - MCKAYLA-7 Assessment Tool: MCKAYLA-7 Assessment 29887 ([id number])
== END 2023-04-04 08:37 | disposition home or self-care (01) ==
PROVIDERS: PCP Physician Assistant; Visit Provider Physician Assistant
DX: J45.20 Mild intermittent asthma, uncomplicated (principal); H93.8X2 Other specified disorders of left ear; E66.09 Other obesity due to excess calories; Z68.30 Body mass index [BMI] 30.0-30.9, adult; E78.1 Pure hyperglyceridemia; G43.009 Migraine without aura, not intractable, without status migrainosus
CPT/HCPCS: 99214

== ENCOUNTER 2023-11-20 07:42 | Outpatient (REF) | payer OTHER, SELFPAY ==
--- NOTE | ~2023-11-20 | US_ITS ---
EXAMINATION: US RETROPERITONEAL COMPLETE (RENAL) CLINICAL INFORMATION: Renal calculi. COMPARISON: Ultrasound kidneys 11/20/2022. TECHNIQUE: Real-time imaging of the kidneys. FINDINGS: RIGHT KIDNEY: 10.2 x 4.4 x 4.9 cm (SAG x AP x TRV). The kidney is normal in size, contour, and echogenicity. Renal cortical thickness is normal. No calculi or focal parenchymal lesions. No hydronephrosis. LEFT KIDNEY: 9.6 x 5.4 x 4.2 cm (SAG x AP x TRV). The kidney is normal in size, contour, and echogenicity. Renal cortical thickness is normal. No calculi or focal parenchymal lesions. No hydronephrosis. A 2 mm calculus seen on the prior CT scan and ultrasound not visualized on the current study. Incidental note made of an echogenic liver consistent with steatosis. US/US renal BI IMPRESSION: Normal-appearing kidneys. No renal calculi are seen. Incidentally noted hepatic steatosis. Electronically signed by: Dilan Acuña MD 11/26/2023 12:43 AM EDT
== END 2023-11-20 07:43 | disposition home or self-care (01) ==
LOC: HO.US 07:42
PROVIDERS: PCP Physician Assistant; Visit Provider Urology
DX: N20.0 Calculus of kidney (principal)
CPT/HCPCS: 76775

== ENCOUNTER 2023-12-03 08:53 | Outpatient (AMB) | payer OTHER, SELFPAY ==
--- NOTE | 2023-12-03 08:58 | A.OFFVIS_ITS ---
Intake Visit Reasons: 1Y Follow Up- Ultrasound follow up(set) Intake Note: Patient is Present for Follow Up Ultrasound Urology Medication: Vitamin B6 Antibiotic Allergies: None Blood Thinners: None Patient states he has been having pain on and off. States this pain has been present for over a year ever since his first Kidney stone Design Agent Required: No Accompanied by: Self / Same As Patient Allergies No Known Allergies Allergy (Verified 12/03/23 08:59) HPI Comments Details: Louis is a pleasant male. He is seen for the following urologic issues - nephrolithiasis Twelve month follow-up Renal ultrasound clear Continue with vitamin B6 12 month follow-up Nephrolithiasis Longstanding intermittent stone former Current therapy vitamin B6 Imaging - 08/13 CT distal right ureteric stone and right renal stone 4 mm - 11/14 renal ultrasound small stone left side 2 mm - 11/15 renal ultrasound no evidence of stones Family history of stones with his father Twelve month follow-up PFSH Medical History Gastroparesis Surgical History No pertinent past surgical history Family History Other Mental health disorder Social History Housing: Apartment Alcohol intake: current Alcohol intake frequency: holidays/special occasions only Patient Tobacco Use Status: Never used Tobacco e-Cigarette/Vaping Use: Never Used Second Hand Smoke Exposure: No Substance Use Type: Marijuana service: No Current occupational status: employed 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 Cognitive needs: No Hearing needs: No Vision needs: No Review of Systems Const Denies chills and Denies fever(s) Card Reports no additional complaints and Denies syncope Resp Denies cough GI Denies abdominal pain and Denies heartburn Reports as per HPI and Denies change in libido Neuro Denies syncope Psych Denies change in libido Endo Denies change in libido Physical Exam Const General: cooperative, healthy appearing, comfortable and no acute distress Orientation/consciousness: patient oriented x3 HEENT Face and sinus: Yes normal facial exam Mouth: moist mucous membranes Neck Neck: Yes normal visual inspection, Yes full ROM and Yes trachea midline Chest Chest palpation & inspection: normal inspection of the chest Resp Effort & Inspection: normal respiratory effort, able to speak in complete sentences and no respiratory distress GI Inspection: Yes normal to inspection Back/Spine/Pelvis Cervical Spine: normal cervical lordosis Thoracic/Lumbar Spine: thoracic and lumbar spine normal to inspection Skin General skin exam: no rashes or lesions noted Neuro General: patient oriented x3, gait normal, tone normal and moves all extremities Extrem General: Yes normal to inspection and Yes capillary refill normal Assessment & Plan Assessment & Plan (1) Nephrolithiasis: Code(s): N20.0 - Calculus of kidney Category: Medical Plan Twelve month follow-up Orders: Orders US renal BI 12 Months N20.0 - Calculus of kidney Patient Instructions: Imaging studies, laboratory and physical exam results were discussed and reviewed in detail. No major barriers to patient understanding were identified. An opportunity to ask questions regarding the treatment plan was provided. All questions were answered. The patient expressed understanding and agreement with the above treatment plan. The patient is aware they should contact our office by phone for worsening of their current condition or the appearance of new urologic symptoms. Compliance is encouraged with any medications and followup testing that is ordered. It is a privilege to participate in the urologic care of your patient. If you have any questions or concerns regarding treatment for the above conditions, or other urologic issues, please do not hesitate to contact me. The office t elephone contact is [phone]. This note is constructed using voice recognition software. While every effort has been made to ensure accuracy hand molder and caster errors may have been included. Yours sincerely, Dr French Fletcher MD, [facility] - Urology Providers of Expert, Compassionate Care for the Genitourinary System Coding Level of Care Code Est Pt Level 4 (52523) Diagnoses Nephrolithiasis N20.0
== END 2023-12-03 09:37 | disposition home or self-care (01) ==
PROVIDERS: PCP Physician Assistant; Visit Provider Urology
DX: N20.0 Calculus of kidney (principal)
CPT/HCPCS: 99214

== ENCOUNTER → 2023-12-03 08:53 | Outpatient (BNVA) | payer OTHER, SELFPAY | PROVIDERS: PCP Physician Assistant; Visit Provider Urology | DX: N20.0 Calculus of kidney (principal) | CPT/HCPCS: 99212 ==

== ENCOUNTER 2024-02-04 08:29 | Outpatient (AMB) | payer OTHER, SELFPAY ==
[2024-02-04 09:17] VITALS: BP 128/86; PULSE 66; O2SAT 99; BMI 31.4
--- NOTE | 2024-02-04 09:17 | MHC.PC.OV ---
Vital Signs 02/04/24 09:17 Height 5 ft 4 in Weight 183 lb BMI 31.4 BP 128/86 Blood Pressure Location Lt brachial Position Sitting Pulse 66 Pulse Source Pulse Oximeter Pulse Oximetry (%) 99 Oxygen Delivery Method Room Air Intake Visit Reasons: Annual Exam Intake Note: Patient is here today for a physical. 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 Accompanied by: Self / Same As Patient Allergies No Known Allergies Allergy (Verified 02/04/24 09:40) Medication List - Last Reconciled 02/04/24 by Sukh Pena PA-C albuterol sulfate 90 mcg/actuation (Ventolin HFA) 1 inh inhalation QID 30 days fluticasone propionate 50 mcg/actuation (Flonase Allergy Relief) 1 spray intranasal DAILY 30 days loratadine 10 mg PO DAILY 30 days meloxicam 15 mg PO DAILY PRN 30 days metronidazole 0.75% 1 appl topical BEDTIME PRN 30 days pyridoxine (vitamin B6) 50 mg PO DAILY 90 days sumatriptan succinate take 1 tab at onset of headache; if no relief may repeat 1 tab after at least 2 hrs; max = 4 tabs/24 hr PO 30 days Tobacco use date assessed: 04/04/23 Dental Screening Dental Screen Date: 04/04/23 HPI Annual Exam HPI Details Patient is a 44-year-old male here today for a routine annual physical.? Patient has a past medical history significant for nephrolithiasis, asthma, migraines. Concern--> patient does report continuing to have arthralgias. He does report a family history of polyarthralgia. He reports meloxicam has been helpful Migraines: Have been much better with p.r.n. use of sumatriptan. /.. Nephrolithitasis:? Followed by Urology, nephrolithiasis has been stable and has not had any recent renal colic. He is getting surveillance renal ultrasounds. .. Asthma: had asthma as a child , his asthma has been well controlled with only seldom use of his albuterol inhaler. Vaccines: Up-to-date with COVID vaccine,. Up-to-date with tetanus and flu vaccines, considering pneumonia vaccine. 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 1. Little interest or pleasure in doing things: not at all 2. Feeling down, depressed, or hopeless: not at all 3. Trouble falling or staying asleep, or sleeping too much: not at all 4. Feeling tired or having little energy: several days 5. Poor appetite or overeating: several days 6. Feeling bad about yourself - or that you are a failure or have let yourself or your family down: several days 7. Trouble concentrating on things, such as reading the newspaper or watching television: not at all 8. Moving or speaking so slowly that other people could have noticed. Or the opposite - being so fidgety or restless that you have been moving around a lot more than usual: not at all 9. Thoughts that you would be better off or of hurting yourself in some way: not at all Total score: 3 Depression Screening Interpretation: Negative Depression Screening Done: Yes 44919 - PHQ-9 Billing: Yes Source: Developed by Drs. Javid Moraes, Claudine Russell, Richy Patel and colleagues, with an educational monet from [employer]. Thrive Questionnaire Date Thrive assessed: 02/04/24 I am a: Patient What is your living situation today?: I have a steady place to live Within the past 12 months, did the food you bought not last and you didn't have the money to get more?: I choose not to answer this question Within the past 12 months, did you worry whether your food would run out before you got money to buy more?: I choose not to answer this question Do you have trouble paying for medicines?: No Do you have trouble getting transportation to medical appointments?: No Do you have trouble paying your heating and electricity bill?: No Do you have trouble taking care of your child, family member or friend?: No Do you have trouble with day-to-day activities such as bathing, preparing meals, shopping, managing finances, etc.?: No Are you currently unemployed and looking for a job?: No Are you interested in more education?: I choose not to answer this question Please select the resources that you would like help with: None Currently or been in a relationship where the following occur: I choose not to answer THRIVE Score: 0 AUDIT C Alcohol Use Questionnaire (AUDIT-C) 1. How often do you have a drink containing alcohol?: Never 3. How often do you have six or more drinks on one occasion?: Never Total Score: 0 MCKAYLA-7 AMB Questionnaire MCKAYLA-7 Date MCKAYLA - 7 assessed: 02/04/24 Feeling nervous, anxious, or on edge: 1 = Several days Not being able to stop or control worryin = Several days Worrying too much about different things: 1 = Several days Trouble relaxin = Several days Being so restless that it is hard to sit still: 0 = Not at all Becoming easily annoyed or irritable: 1 = Several days Feeling afraid as if something awful might happen: 1 = Several days Total MCKAYLA-7 score (0-4 normal; 5-9 mild; 10-14 moderate; 15-21 severe): 6 Source: Developed by Drs. Javid Moraes, Claudine Russell, Richy Patel and colleagues, with an educational monet from [employer]. MCKAYLA-7 Assessment Billing MCKAYLA-7 Assessment Tool: MCKAYLA-7 Assessment 49145 Review of Systems Const Denies body aches, Denies chills, Denies excessive sweating, Denies fatigue, Denies fever(s) and Denies headache(s) Eyes Denies blurry vision ENT Denies dysphagia, Denies vertigo, Denies dizziness, Denies headache(s), Denies hearing loss and Denies tinnitus Card Denies chest pain, Denies chest pain with activity, Denies syncope, Denies irregular heart rhythm and Denies dyspnea Resp Denies chest congestion, Denies cough, Denies hemoptysis, Denies dyspnea and Denies wheezing GI Denies abdominal pain, Denies melena, Denies hematochezia, Denies coffee ground emesis, Denies dysphagia, Denies diarrhea, Denies nausea and Denies vomiting Denies difficulty urinating, Denies dysuria, Denies urinary frequency, Denies urinary hesitancy and Denies urinary urgency Musc Reports arthralgias, Denies limited range of motion, Denies muscle cramps and Denies muscle weakness Skin/Breast Denies rash and Denies skin ulcer Neuro Denies Abnormal speech present, Denies confusion, Denies vertigo, Denies dizziness, Denies syncope, Denies headache(s), Denies memory loss and Denies seizure-like activity Psych Denies anxiety, Denies confusion, Denies depression, Denies memory loss, Denies panic attacks and Denies paranoia Endo Denies excessive sweating, Denies fatigue, Denies flushing, Denies polydipsia and Denies polyuria Aller/Immun Denies wheezing Physical exam (Primary Care) Vital Signs: Last Vital Signs Pulse 66 02/04/24 09:17 BP 128/86 02/04/24 09:17 Pulse Ox 99 02/04/24 09:17 Oxygen Delivery Method Room Air 02/04/24 09:17 BMI result Body Mass Index 31.4 Tobacco/Smoking Status: Tobacco use Status Tobacco use date assessed 04/04/23 02/04/24 09:20 Patient Tobacco Use Status Never used Tobacco 02/04/24 09:20 e-Cigarette/Vaping Use Never Used 02/04/24 09:20 PHQ-9: PHQ-9 Score PHQ-9: Total score 3 02/04/24 09:23 Depression Screening Interpretation: Negative Thrive Assessment: Date of Thrive Assessment Date Thrive assessed 02/04/24 02/04/24 09:23 Currently or been in a relationship where the following occur: I choose not to answer Const General: cooperative, comfortable, no acute distress, alert and awake; No confusion Orientation/consciousness: oriented to person, oriented to place, patient oriented x3 and No confusion HENMT Head: Yes normocephalic Ears: external ears normal and TM's normal bilaterally Face and sinus: No sinus tenderness Mouth: Normal oral and palatal mucosa present and tongue normal Teeth and gingiva: dentition normal and gingiva normal Throat: Yes posterior oropharynx normal, Yes tonsils normal and Yes uvula midline Eyes Conjunctivae: conjunctivae normal Sclerae: sclerae normal Pupils: Equal, round and reactive pupils present EOM: EOMs intact bilaterally Direct Ophthalmoscopy: No no photophobia Neck Neck: Yes no lymphadenopathy, No tender and Yes no JVD Thyroid: Thyroid normal Carotids: no bruits Chest Chest palpation & inspection: no tenderness Resp Effort & Inspection: normal respiratory effort, no audible wheezes, not labored and no stridor Auscultation: no crackles, no rales, no rhonchi and no wheezes Cardio Jugular venous distension: no JVD Rate: regular rate, not bradycardic and not tachycardic Rhythm: regular rhythm Bruits: no carotid bruits Peripheral pulses: Peripheral pulses 2+ throughout GI Inspection: Yes normal to inspection, No abdominal wall ecchymosis and No visible herniation Palpation (GI): Soft to palpation, nontender, no guarding, not rigid and No hepatosplenomegaly present Auscultation: normoactive bowel sounds General: Yes no CVA tenderness Back/Spine/Pelvis Back: no CVA tenderness and No back tenderness Cervical Spine: cervical ROM normal Thoracic/Lumbar Spine: thoracic and lumbar spine normal to inspection, straight leg raise negative bilaterally, No thoraco-lumbar ROM limited and No lumbar spinal tenderness Skin Lesions: no lesions Rashes: no rashes Wounds: no wounds Neuro General: oriented to person, oriented to place, patient oriented x3, CN's II-XI intact bilaterally and No confusion Cranial nerves: Yes Equal, round and reactive pupils present and Yes Normal accommodation reflex present Cognition (Neuro): normal cognition Speech: No Abnormal speech present Gait exam (Neuro): Normal gait present Motor exam (neuro): 5/5 motor strength present throughout Extrem Right upper extremity: full ROM; no cyanosis Left upper extremity: full ROM; no cyanosis Right lower extremity: no edema Left lower extremity: no edema Psych Appearance: grossly normal Mental Status: mental status grossly normal Affect: normal affect Attitude: cooperative Thought process: Normal thought process present Office Procedures Flu Questionnaire Does the patient have a severe egg allergy?: No Does the patient have severe life threatening allergies?: No Does the patient have a fever or illness today?: No Has the patient ever had Guillain-Houston Syndrome?: No Has the patient ever had any past reaction to a flu shot?: No Immunizations Fluarix Triv [id number] (PF) 45 mcg (15 mcg x 3)/0.5 mL IM syringe Performing Provider: Sukh Pena PA-C [place] [facility] [place] [facility] Administered by: YARON Bland on 02/04/24 09:23 Dose Route Admin Location Dispensed Lot Number Expiration Date 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 0.5 mL IM Left Deltoid 0.5 mL [id number] 09/22/23 [id number] [employer] VIS Given Date VIS Provided VIS Publication Date 02/04/24 Single Vaccine 20 Eligibility Eligibility Date Funding Source Not [facility] Eligible 02/04/24 Private Coding Level of Care Code Est Pt Prev Care 40-64y(66589) Diagnoses Annual physical exam Z00.00 Polyarthralgia M25.50 Mild intermittent asthma without complication J45.20 Asthma severity: mild Asthma persistence: intermittent Asthma complication type: uncomplicated Hypertriglyceridemia E78.1 Migraine without aura and without status migrainosus, not intractable G43.009 Migraine type: without aura Status migrainosus presence: without status migrainosus Intractability: not intractable Anxiety F41.9 Additional Codes MCKAYLA-7 Assessment Billing - MCKAYLA-7 Assessment Tool: MCKAYLA-7 Assessment 03342 ([id number]) PHQ-9 - 52858 - PHQ-9 Billing: Yes ([id number]) Assessment & Plan Assessment & Plan (1) Annual physical exam: Code(s): Z00.00 - Encounter for general adult medical examination without abnormal findings Category: Medical Plan: As per HPI (2) Polyarthralgia: Code(s): M25.50 - Pain in unspecified joint Category: Medical Plan: Patient continues to polyarthralgia particularly over his knees, elbows and hands. He does report having a family history of arthralgias. Will send for rheumatology testing. (3) Asthma: Code(s): J45.909 - Unspecified asthma, uncomplicated Category: Medical Qualifiers: Asthma severity: mild Asthma persistence: intermittent Asthma complication type: uncomplicated Qualified Code(s): J45.20 - Mild intermittent asthma, uncomplicated Plan: Patient reports his asthma has been fairly well controlled with only p.r.n. use of his albuterol inhaler. He denies any nighttime awakenings or recent asthma exacerbations. (4) Hypertriglyceridemia: Code(s): E78.1 - Pure hyperglyceridemia Category: Medical Plan: Patient has a history of hypertriglyceridemia. Has been working on lifestyle and dietary modifications to reduce his cholesterol. (5) Migraine: Code(s): G43.909 - Migraine, unspecified, not intractable, without status migrainosus Category: Medical Qualifiers: Migraine type: without aura Status migrainosus presence: without status migrainosus Intractability: not intractable Qualified Code(s): G43.009 - Migraine without aura, not intractable, without status migrainosus Plan: Patient reports his migraines have been fairly well controlled. Has had to only use minimal doses sumatriptan. (6) Anxiety: Code(s): F41.9 - Anxiety disorder, unspecified Category: Medical Plan: Patient's MCKAYLA-7 positive for anxiety which has been existing condition. He is not interested in mental health therapy or medication at this time. Orders: Orders Influenza [id number] Immunization Today Z23 - Encounter for immunization Lipid Panel Today E78.1 - Pure hyperglyceridemia Complete Blood Count no Diff Today J45.20 - Mild intermittent asthma, uncomplicated Comprehensive [place]. Panel Fast Today E78.1 - Pure hyperglyceridemia Anti DNA DS Antibody Today M25.50 - Pain in unspecified joint DI Reflex Titer and Pattern Today M25.50 - Pain in unspecified joint Cyclic Citrullinated Peptide Today M25.50 - Pain in unspecified joint Rheumatoid Factor Today M25.50 - Pain in unspecified joint Medications: Refilled albuterol sulfate 90 mcg/actuation (Ventolin HFA) 1 inh inhalation QID 30 days 8.5 grams 2RF J45.20 - Mild intermittent asthma, uncomplicated fluticasone propionate 50 mcg/actuation (Flonase Allergy Relief) administer into each nostril 1 spray intranasal DAILY 30 days 16 grams 1RF H93.8X2 - Other specified disorders of left ear loratadine 10 mg PO DAILY 30 days 30 tabs 1RF H93.8X2 - Other specified disorders of left ear meloxicam 15 mg PO DAILY 30 days PRN 30 tabs 0RF pain G89.29 - Other chronic pain, M25.562 - Pain in left knee
== END 2024-02-04 09:53 | disposition home or self-care (01) ==
PROVIDERS: PCP Physician Assistant; Visit Provider Physician Assistant
DX: Z00.00 Encounter for general adult medical examination without abnormal findings (principal); M25.50 Pain in unspecified joint; J45.20 Mild intermittent asthma, uncomplicated; E78.1 Pure hyperglyceridemia; G43.009 Migraine without aura, not intractable, without status migrainosus; F41.9 Anxiety disorder, unspecified; Z23 Encounter for immunization

== ENCOUNTER → 2024-02-04 08:29 | Outpatient (BNVA) | payer OTHER, SELFPAY | PROVIDERS: PCP Physician Assistant; Visit Provider Physician Assistant | DX: Z00.00 Encounter for general adult medical examination without abnormal findings (principal); Z23 Encounter for immunization; M25.50 Pain in unspecified joint; J45.20 Mild intermittent asthma, uncomplicated; E78.1 Pure hyperglyceridemia; G43.009 Migraine without aura, not intractable, without status migrainosus; F41.9 Anxiety disorder, unspecified | CPT/HCPCS: 90471; 90656; 96127; 99396 ==

== ENCOUNTER 2024-02-18 07:34 | Outpatient (REF) | payer OTHER, SELFPAY ==
[2024-02-18 08:18] LABS: Hematocrit 42.5 % (42.0-52.0); Hemoglobin 14.9 g/dl (14.0-18.0); Mean Corpuscular HGB Conc 35.1 g/dl (31.0-36.0); Mean Corpuscular Hemoglobin 29.6 pg (27.0-33.0); Mean Corpuscular Volume 84.5 fL (80.0-98.0); Platelet Count 408 X10*3/uL (160-400); Red Blood Count 5.03 X10*6/uL (4.60-5.80); Red Cell Distribution Width 13.2 % (11.0-16.0)
[2024-02-18 08:28] LABS: Rheumatoid Factor < 13.0 IU/mL (<15.0)
[2024-02-18 08:32] LABS: Alanine Aminotransferase 51 U/L (0-40); Albumin Level 4.2 g/dL (3.5-5.0); Alkaline Phosphatase 91 U/L (39-117); Anion Gap 12 (12-20); Aspartate Amino Transferase 38 U/L (5-37); Bilirubin Total 0.4 mg/dL (0.0-1.0); Blood Urea Nitrogen 12 mg/dL (9-16); Calcium 9.3 mg/dL (8.4-10.2); Carbon Dioxide 25 mmol/L (22-29); Chloride 105 mmol/L (96-108); Cholesterol 184 mg/dL (<200); Estimated Glomerular Filt Rate > 60; Glucose Fasting 100 mg/dL (60-99); HDL Cholesterol 28 mg/dL (>40); LDL Cholesterol Calculated 93 mg/dL (<100); Potassium 3.9 mmol/L (3.3-5.1); Sodium 138 mmol/L (135-145); Total Protein 7.8 g/dL (6.5-8.0); Triglycerides 316 mg/dL (<150)
[2024-02-21 13:48] LABS: Anti Nuclear Antibody Screen NEGATIVE (NEGATIVE)
[2024-02-21 14:03] LABS: Anti DNA DS Antibody <1 IU/mL
[2024-02-24 06:39] LABS: Cyclic Citrullinated Peptide 27 UNITS
== END 2024-02-18 07:35 | disposition home or self-care (01) ==
LOC: HO.LAB 07:34
PROVIDERS: PCP Physician Assistant; Visit Provider Physician Assistant
DX: J45.20 Mild intermittent asthma, uncomplicated (principal); E78.1 Pure hyperglyceridemia; M25.50 Pain in unspecified joint
CPT/HCPCS: 36415; 80053; 80061; 85027; 86038; 86200; 86225; 86431

== ENCOUNTER 2024-03-04 08:01 | Outpatient (REF) | payer OTHER, SELFPAY | END 2024-03-04 08:02 | disposition home or self-care (01) | LOC: HO.US 08:01 | PROVIDERS: PCP Physician Assistant; Visit Provider Physician Assistant | DX: R74.8 Abnormal levels of other serum enzymes (principal) | CPT/HCPCS: 76700 ==

== ENCOUNTER 2024-09-27 05:29 | Emergency (ER) | payer OTHER, SELFPAY ==
[2024-09-27 05:32] VITALS: BP 132/97; PULSE 91; RESP 16; TEMP 36.9; O2SAT 97; BMI 34.0
[2024-09-27 06:00] LABS: IDNOW Serial# 6674DD1D; Strep A Nucleic Acid Negative (Negative)
[2024-09-27 06:29] LABS: Resp Syncy Virus RNA Qual PCR NEGATIVE (Negative); SARS COV2 PCR INHOUSE NEGATIVE (Negative)
--- NOTE | 2024-09-27 07:16 | ED.GENADULT ---
HPI - General Adult General Chief complaint: General Medical Stated complaint: fever/ear and throat pain Time Seen by Provider: 09/27/24 07:09 Source: patient Mode of arrival: ambulatory Limitations: no limitations History of Present Illness ED Provider: DR. Chawla HPI narrative: 44-year-old male with history of asthma came in for evaluation of URI symptoms been having coughing with clear sputum, sore throat, bilateral ear pain, and right frontal sinus pressure. No SOB, no fever, no chills, no exposure to sick contacts, no recent travel. Related Data Previous Rx's ?Medication ?Instructions ?Recorded sumatriptan succinate 25 mg tablet See Rx Instructions PO .COMPLEX 30 03/12/23 days #9 tabs albuterol sulfate 90 mcg/actuation 1 inh inhalation QID 30 days #8.5 02/04/24 aerosol inhaler (Ventolin HFA) grams loratadine 10 mg tablet 10 mg PO DAILY 30 days #30 tabs 02/04/24 fluticasone propionate 50 1 spray intranasal DAILY 30 days 06/06/24 mcg/actuation nasal #16 grams spray,suspension (Flonase Allergy Relief) meloxicam 15 mg tablet 15 mg PO DAILY PRN pain 30 days 07/31/24 #30 tabs pyridoxine (vitamin B6) 50 mg 50 mg PO DAILY 90 days #90 tabs 07/31/24 tablet metronidazole 0.75 % topical gel 1 appl topical BEDTIME PRN skin 08/01/24 irritation 30 days #45 grams azithromycin 250 mg tablet See Rx Instructions PO .COMPLEX #6 09/27/24 (Zithromax Z-Alo) tabs Allergies Allergy/AdvReac Type Severity Reaction Status Date / Time No Known Allergies Allergy Verified 09/27/24 05:34 Review of Systems Review of Systems: All other systems are reviewed and are negative Constitutional: Reports as per HPI and Reports no additional constitutional complaints Eyes: Reports as per HPI and Reports no additional eye complaints Reports system reviewed and no additional complaints, except as documented Cardiovascular: Reports as per HPI and Reports no additional cardiovascular complaints Respiratory: Reports as per HPI and Reports no additional respiratory complaints Gastrointestinal: Reports as per HPI and Reports no additional gastrointestinal complaints Genitourinary: Reports no additional female genitourinary complaints Musculoskeletal: Reports no additional musculoskeletal complaints Skin/Breast: Reports system reviewed and no additional complaints, except as docu Psychiatric: Reports no additional psychiatric complaints Endocrine: Reports no additional endocrine complaints Hematologic/Lymphatic: Reports no additional hematologic/lymphatic complaints Allergic/Immunologic: Reports no additional allergic/immunologic complaints Reports system reviewed and no additional complaints, except as documented and Reports Abnormal speech present [facility] Past Medical History Medical History Gastroparesis Surgical History No pertinent past surgical history Family History Family History Other Mental health disorder Social History Social History Housing: Apartment Alcohol intake: current Alcohol intake frequency: holidays/special occasions only Patient Tobacco Use Status: Never used Tobacco Smoked in Last 30 Days: No e-Cigarette/Vaping Use: Never Used Second Hand Smoke Exposure: No Use of substances other than those prescribed or required for medical reasons: No Substance Use Type: Marijuana Advance Directives: No Advance Directives Information Provided: Yes Do you have a plan to hurt others: No Plan service: No Current occupational status: employed 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 Blood pressure elevated. Heart rate normal. Respiratory rate normal. Temperature normal. Oxygen saturation normal. Appearance: Alert. Oriented X3. No acute distress. Head: Normal external exam. Normocephalic. Atraumatic. No Shipley signs noted. No raccoon eyes noted Eyes: PERRLA. EOMI. Conjunctiva and sclera normal. Eyelids normal. ENT: Right frontal sinus tenderness with percussion, TM's Normal. Pharynx normal. Uvula midline. Moist mucous membranes. No trismus noted. No drooling noted. No muffled voice noted. Neck: Normal inspection. Neck supple. FROM. No adenopathy. Thyroid Normal. No meningeal signs. No neck mass noted. CVS: Normal heart rate and rhythm. Heart sound normal. No murmurs noted. Pulses normal throughout. Respiratory: No respiratory distress. Painless inspiration. Breath sounds normal. No wheezes/rales/rhonchi noted. Chest nontender. No accessory muscle usage noted or decreased air movement noted. Abdomen: Soft and nontender. Bowel sounds normal in all 4 quadrants. No distention noted. No organomegaly noted. No visible injury noted. Back: No CVA tenderness. Full range of motion noted. Skin: Skin warm and dry. Normal skin color. Normal skin turgor. No rashes/lesions/lacerations noted. Extremities: No lower extremity edema. Extremities exhibit normal range of motion. Extremities nontender. Neuro: Oriented X 3. Cranial nerve exam: II-XII are grossly intact No motor deficit. No sensory deficit. Reflexes normal. Course Reevaluation(s) Reevaluation #1: URI symptoms likely viral superimposed with right frontal sinusitis. Start on Z-Alo. Time: 07:19 Medical Decision Making Differential Diagnosis Differential Diagnoses: The differential diagnosis associated with the presentation includes ( Strep pharyngitis, viral pharyngitis, sinusitis, otitis media , pneumonia, bronchitis.) Admission/Observation Consideration of admission/observation: Escalation of care including admission/observation considered Lab Data Labs: Lab Results 09/27/24 Range/Units 05:46 Influenza Type A (PCR) NEGATIVE (Negative) Influenza Type B (PCR) NEGATIVE (Negative) RSV RNA Qual (PCR) NEGATIVE (Negative) SARS-CoV-2 RNA (RT-PCR) NEGATIVE (Negative) S. pyogenes GrpA HILDA Negative (Negative) Discharge Plan Discharge Clinical Impression: URI (upper respiratory infection), Sinusitis Patient Disposition: Home, Self-Care Instructions: Sinusitis (ED) Prescriptions: New azithromycin [Zithromax Z-Alo] 250 mg tablet See Rx Instructions .ROUTE .COMPLEX Qty: 6 0RF Rx Instructions: For 250 mg dose pack: take 500 mg today (day 1), then 250 mg for 4 days (days 2-5) No Action sumatriptan succinate 25 mg tablet See Rx Instructions PO .COMPLEX 30 Days Qty: 9 0RF Rx Instructions: take 1 tab at onset of headache; if no relief may repeat 1 tab after at least 2 hrs; max = 4 tabs/24 hr PO fluticasone propionate [Flonase Allergy Relief] 50 mcg/actuation spray,suspension 1 spray intranasal DAILY 30 Days Qty: 16 1RF Rx Instructions: administer into each nostril pyridoxine (vitamin B6) 50 mg tablet 50 mg PO DAILY 90 Days Qty: 90 3RF meloxicam 15 mg tablet 15 mg PO DAILY PRN (Reason: pain) 30 Days Qty: 30 3RF metronidazole 0.75 % gel 1 appl topical BEDTIME PRN (Reason: skin irritation) 30 Days Qty: 45 0RF albuterol sulfate [Ventolin HFA] 90 mcg/actuation HFA aerosol inhaler 1 inh inhalation QID 30 Days Qty: 8.5 2RF loratadine 10 mg tablet 10 mg PO DAILY 30 Days Qty: 30 1RF Referrals: Sukh Pena PA-C [Primary Care Provider, Internal Medicine] Print Language: Haitian
[2024-09-27 07:26] VITALS: BP 132/97; PULSE 91; RESP 16; TEMP 36.9; O2SAT 97
== END 2024-09-27 07:27 | disposition home or self-care (01) ==
PROVIDERS: Emergency Provider Emergency Medicine; PCP Physician Assistant
DX: J06.9 Acute upper respiratory infection, unspecified (principal); J32.9 Chronic sinusitis, unspecified; R50.9 Fever, unspecified; R07.0 Pain in throat; Z03.818 Encounter for observation for suspected exposure to other biological agents ruled out
CPT/HCPCS: 87637; 87651; 99283; 99284

== ENCOUNTER 2024-11-24 07:39 | Outpatient (REF) | payer OTHER, SELFPAY ==
--- NOTE | ~2024-11-24 | US_ITS ---
EXAMINATION: US RETROPERITONEAL LIMITED (RENAL ONLY) CLINICAL INFORMATION: Calculus of kidney.. COMPARISON: Ultrasound abdomen 03/04/2024 TECHNIQUE: Routine retroperitoneal imaging with attention to kidneys are obtained. Bladder was not evaluated. FINDINGS: RIGHT KIDNEY: 11.8 x 5.1 x 4.9 cm (SAG x AP x TRV). The kidney is normal in size, contour, and echogenicity. Renal cortical thickness is normal. No calculi or focal parenchymal lesions. No hydronephrosis. LEFT KIDNEY: 10.3 x 4.7 x 4.6 cm (SAG x AP x TRV). The kidney is normal in size, contour, and echogenicity. Renal cortical thickness is normal. No calculi or focal parenchymal lesions. No hydronephrosis. US/US renal BI IMPRESSION: Unremarkable renal ultrasound.. Electronically signed by: Uziel Noel MD 11/24/2024 10:21 AM EDT
== END 2024-11-24 07:40 | disposition home or self-care (01) ==
LOC: HO.US 07:39
PROVIDERS: PCP Physician Assistant; Visit Provider Urology
DX: N20.0 Calculus of kidney (principal)
CPT/HCPCS: 76775

== ENCOUNTER → 2024-11-24 07:41 | Outpatient (BNV) | payer OTHER, SELFPAY | PROVIDERS: PCP Physician Assistant; Visit Provider Radiology Diagnostic Radiology | DX: N20.0 Calculus of kidney (principal) | CPT/HCPCS: 76775 ==

== ENCOUNTER 2024-12-02 08:54 | Outpatient (AMB) | payer OTHER, SELFPAY ==
--- NOTE | 2024-12-02 08:55 | MHC.OFFVIS ---
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 He is seen for the following urologic issues - nephrolithiasis Telemedicine Evaluation 15 min Consultation [employer] Twelve month follow-up No stones Continue B6 May follow with PCP Nephrolithiasis Longstanding intermittent stone former Current therapy vitamin B6 Imaging - 08/13 CT distal right ureteric stone and right renal stone 4 mm - 11/14 renal ultrasound small stone left side 2 mm - 11/15 renal ultrasound no evidence of stones - 11/16 renal ultrasound no evidence of stones Family history of stones with his father PRN [facility] Medical History Gastroparesis Surgical History No pertinent past surgical history Family History Other Mental health disorder Social History Housing: Apartment Alcohol intake: current Alcohol intake frequency: holidays/special occasions only Patient Tobacco Use Status: Never used Tobacco e-Cigarette/Vaping Use: Never Used Second Hand Smoke Exposure: No Substance Use Type: Marijuana service: No Current occupational status: employed 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 Cognitive needs: No Hearing needs: No Vision needs: No Review of Systems Const All systems reviewed & are unremarkable except as noted in HPI and below Reports no additional complaints Resp Reports no additional complaints GI Reports no additional complaints Reports as per HPI Musc Reports no additional complaints Physical Exam Telemedicine evaluation Appropriate responses Regular breathing rate and rhythm HEENT Head: Yes normal to inspection Ears: hearing grossly normal bilaterally Eyes General: appearance normal, both eyes and all related structures Neck Neck: Yes normal visual inspection Chest Chest palpation & inspection: normal inspection of the chest Resp Effort & Inspection: normal respiratory effort and able to speak in complete sentences Telehealth Telehealth Telehealth Platform: [employer] Location of provider rendering services: practice address Location of patient: address on file Patient Identification confirmed using: Name, : Yes Telehealth method: video Patient verbally consented to treatment: Yes Patient verbally consented to billing insurance company: Yes Patient informed of any privacy concerns related to visit: Yes Minutes spent on Phone/Video with Pt.: 15 Assessment & Plan Assessment & Plan (1) Nephrolithiasis: Code(s): N20.0 - Calculus of kidney Category: Medical Plan P.r.n. follow-up Medications: Refilled pyridoxine (vitamin B6) 50 mg PO DAILY 90 tabs 3RF 90 days N13.2 - Hydronephrosis with renal and ureteral calculous obstruction, N20.0 - Calculus of kidney Patient Instructions: This note is constructed using voice recognition software. While every effort has been made to ensure accuracy sound recording technician errors may have been included. Imaging studies, laboratory and physical exam results were discussed and reviewed in detail. No major barriers to patient understanding were identified. An opportunity to ask questions regarding the treatment plan was provided. All questions were answered. The patient expressed understanding and agreement with the above treatment plan. The patient is aware they should contact our office by phone for worsening of their current condition or the appearance of new urologic symptoms. Compliance is encouraged with any medications and followup testing that is ordered. It is a privilege to participate in the urologic care of your patient. If you have any questions or concerns regarding treatment for the above conditions, or other urologic issues, please do not hesitate to contact me. The office telephone contact is [phone]. Sincerely, Dr French Fletcher MD, [facility] - Urology Compassionate Specialist Care for the Genitourinary System Coding Level of Care Code Tele Est Pt Level 3 (42778) Diagnoses Nephrolithiasis N20.0
== END 2024-12-02 09:50 | disposition home or self-care (01) ==
LOC: HO.HUSH 08:54
PROVIDERS: PCP Physician Assistant; Visit Provider Urology
DX: N20.0 Calculus of kidney (principal)
CPT/HCPCS: 98004

== ENCOUNTER 2025-01-01 10:29 | Outpatient (REF) | payer OTHER, SELFPAY ==
[2025-01-01 18:25] LABS: MANUAL DIFF FLAG NO
[2025-01-01 18:34] LABS: Hematocrit 41.5 % (42.0-52.0); Hemoglobin 13.8 g/dl (14.0-18.0); Imm Gran Abs Auto 0.02 X10*3/uL (0.00-0.03); Imm Gran Pct Auto 0.4 % (0.0-0.4); Lymphocytes Absolute Auto 1.3 X10*3/uL (1.2-4.9); Mean Corpuscular HGB Conc 33.3 g/dl (31.0-36.0); Mean Corpuscular Hemoglobin 28.8 pg (27.0-33.0); Mean Corpuscular Volume 86.6 fL (80.0-98.0); NRBC Abs Auto 0.000 X10*3/uL (0.0-0.012); NRBC Pct Auto 0.0 /100WBC (0.0-0.2); Platelet Count 382 X10*3/uL (160-400); Red Blood Count 4.79 X10*6/uL (4.60-5.80); White Blood Count 4.6 X10*3/uL (4.8-10.8)
[2025-01-01 18:49] LABS: Alanine Aminotransferase 43 U/L (0-40); Albumin Level 4.3 g/dL (3.5-5.0); Alkaline Phosphatase 95 U/L (39-117); Anion Gap 12 (12-20); Aspartate Amino Transferase 38 U/L (5-37); Blood Urea Nitrogen 11 mg/dL (9-16); Calcium 9.5 mg/dL (8.4-10.2); Carbon Dioxide 26 mmol/L (22-29); Chloride 106 mmol/L (96-108); Estimated Glomerular Filt Rate > 60; Potassium 4.2 mmol/L (3.3-5.1); Sodium 140 mmol/L (135-145); Total Protein 7.7 g/dL (6.5-8.0)
== END 2025-01-01 10:30 | disposition home or self-care (01) ==
LOC: HO.HKASLDS 10:29
PROVIDERS: PCP Physician Assistant; Visit Provider Student in an Organized Health Care Education/Training Program
DX: M06.9 Rheumatoid arthritis, unspecified (principal); M13.0 Polyarthritis, unspecified; Z51.81 Encounter for therapeutic drug level monitoring; Z79.899 Other long term (current) drug therapy; Z79.1 Long term (current) use of non-steroidal anti-inflammatories (NSAID)
CPT/HCPCS: 36415; 80053; 85025; 85652; 86140; 86200; 86431; 99202

== ENCOUNTER 2025-01-01 10:29 | Outpatient (AMB) | payer OTHER, SELFPAY ==
--- NOTE | 2024-12-28 11:29 | MHC.OFFVIS ---
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
--- NOTE | 2025-01-01 10:37 | A.OFFVIS_ITS ---
Vital Signs 01/01/25 10:43 Height 5 ft 1 in Weight 187 lb 2.759 oz BMI 35.4 BP 140/100 H Blood Pressure Location Lt brachial Position Sitting Pulse 62 Pulse Source Pulse Oximeter Pulse Oximetry (%) 98 Oxygen Delivery Method Room Air Intake Visit Reasons: joint pain Intake Note: Patient is a new patient, internally referred by PCP Sukh Pena, for polyarthralgia. Accompanied by: Self / Same As Patient Allergies No Known Allergies Allergy (Verified 01/01/25 10:43) Medication List - Last Reconciled 01/01/25 by Sari Al MD albuterol sulfate 90 mcg/actuation (Ventolin HFA) 1 inh inhalation QID 30 days fluticasone propionate 50 mcg/actuation (Flonase Allergy Relief) 1 spray intranasal DAILY 30 days loratadine 10 mg PO DAILY 30 days meloxicam 15 mg PO DAILY PRN 30 days metronidazole 0.75% 1 appl topical BEDTIME PRN 30 days pyridoxine (vitamin B6) 50 mg PO DAILY 90 days sumatriptan succinate take 1 tab at onset of headache; if no relief may repeat 1 tab after at least 2 hrs; max = 4 tabs/24 hr PO 30 days HPI Comments Details: Patient is a 44-year-old male with hyperlipidemia and anxiety here today for evaluation of positive CCP antibody Patient complains of joint pain since the age of 40 and this has been p rogressing since then Joint pain involving: - bilateral hands associated with AM stiffness 20-30mins. Hands feel numb when he first wakes up. Never been tested for carpal tunnel - left elbow - left shoulder - bilateral knees: L>R. Associated with swelling. Self resolves Pain is worse in the AM Does notice that more physical activities the day prior will aggravate his joint pain. 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 Currently takes Tylenol, usually 1000mg at a time Also prescribed meloxicam from primary, which helps more than the Tylenol Never gotten XRs Denies any family history of autoimmune disease Mom and Dad has OA Also sister with OA PFSH Medical History Gastroparesis Surgical History No pertinent past surgical history Family History Other Mental health disorder Social History Housing: Apartment Alcohol intake: current Alcohol intake frequency: holidays/special occasions only Patient Tobacco Use Status: Never used Tobacco e-Cigarette/Vaping Use: Never Used Second Hand Smoke Exposure: No Substance Use Type: Marijuana service: No Current occupational status: employed 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 Cognitive needs: No Hearing needs: No Vision needs: No Review of Systems Const Details: Review of Systems Constitutional: Denies fever, chills, weight loss ENT: Denies vision changes, eye pain or eye redness, dental caries, dry mouth GI: Denies nausea, vomiting, diarrhea, abdominal pain, change in BM Pulm: Denies SOB, LOPEZ, hemoptysis, wheezing Cards: Denies chest pain, palpitations Skin: Denies Raynaud's, rash, nail changes, photosensitivity, BUSINESS CONTINUITY PLANNING DIRECTOR: Denies headaches, weakness, paresthesias, recurrent falls MSK: as per HPI All other systems reviewed and are unremarkable except noted above Physical Exam Exam Exam: Vital signs reviewed Physical Examination CONSTITUITIONAL Patient alert and cooperative. Well appearing and in no apparent painful distress MSK Hands * Right Hand: Able to make a fist. No swelling but TTP of the 2nd and 3rd MCPs * Left Hand: Able to make a fist. No swelling but TTP of the 2nd and 3rd MCPs Wrists * Right Wrist: Full ROM to flexion and extension. No swelling or TTP * Left Wrist: Full ROM to flexion and extension. No swelling or TTP Elbows * Right Elbow: Full ROM. No swelling or TTP. No TTP of the medial epicondyle. TTP of the lateral epicondyle (mild and less compared to the left) * Left Elbow: Full ROM. No swelling. TTP of the elbow joint. No TTP of the medial epicondyle. TTP of the lateral epicondyle Shoulders * Right shoulder: Full ROM. No swelling noted. No TTP of the AC joint. No TTP of the subacromial bursa. No TTP of the posterior shoulder. Positive H-K maneuver * Left shoulder: Full ROM. No swelling noted. No TTP of the AC joint. TTP of the subacromial bursa. No TTP of the posterior shoulder. Positive H-K maneuver Knees * Right knee: Full ROM. No swelling noted. No TTP of the knee joint line. No TTP of pes anserine bursa. Lagrange pain with knee extension posteriorly * Left knee: Full ROM. No swelling noted. No TTP of the knee joint line. No TTP of pes anserine bursa. Lagrange pain with knee extension posteriorly Ankles * Right ankle: Good ankle dorsiflexion and plantar flexion. No swelling. No TTP of the ankle joint * Left ankle: Good ankle dorsiflexion and plantar flexion. No swelling. No TTP of the ankle joint Feet * Right foot: Negative squeeze test * Left foot: Negative squeeze test Tender points? * No tenderness to palpation of the bilateral trapezius, supraspinatus, anterior costochondral junctions, bilateral suboccipital muscle insertions SKIN No rashes Results Reviewed Results Reviewed: Laboratory Tests 04/02/23 02/18/24 08:33 07:54 WBC 8.0 RBC 5.03 Hgb 14.9 Hct 42.5 Plt Count 408 H Sodium 138 Potassium 3.9 Chloride 105 Carbon Dioxide 25 BUN 12 Creatinine 0.91 AST 25 38 H ALT 36 51 H Laboratory Tests 02/18/24 07:54 Rheumatoid Factor < 13.0 Cycl Citrul Peptide IgG 27 H DI Screen NEGATIVE Assessment & Plan Assessment & Plan (1) Rheumatoid arthritis: Code(s): M06.9 - Rheumatoid arthritis, unspecified Qualifiers: Rheumatoid arthritis location: unspecified site Rheumatoid factor presence: unspecified presence Qualified Code(s): M06.9 - Rheumatoid arthritis, unspecified Plan: #Rheumatoid arthritis vs OA Patient is a 44-year-old male who presents for evaluation of joint pain in the setting of weakly positive CCP. History and exam not very consistent with inflammatory arthritis however given the specificity of CCP and him having tenderness to palpation of the 2nd and 3rd MCPs I think this warrants trial of mild immunosuppression with hydroxychloroquine. Discussed with the patient in detail my findings including that this could also just represent osteoarthritis especially given his strong family history that his positive CCP may not be related to rheumatoid arthritis at all. He voiced understanding and is willing to do the trial of hydroxychloroquine. We will also check blood work and x-rays His bilateral shoulders were positive for Summers Dejan impingement consistent with rotator cuff disease specifically supraspinatus. We will need to send to physical therapy in the future for this for now we will see if Plaquenil is helpful Plan - Hydroxychloroquine 200mg bid - Labs today: CBC, CMP, ESR, CRP, RF, CCP - XRs: Bilateral hands, bilateral wrists, bilateral shoulders, bilateral knees and bilateral elbows - RTC 4 months (2) Encounter for monitoring of hydroxychloroquine therapy: Code(s): Z51.81 - Encounter for therapeutic drug level monitoring; Z79.899 - Other museum director (current) drug therapy Plan: #Long-term Use of Hydroxychloroquine Discussed with patient the risks and benefits of hydroxychloroquine in managing the rheumatic condition Benefits include: - Reduced pain, reduce mortality, maintenance of remission and reduction of flares Risks include: - GI upset, skin hyperpigmentation, retinal toxicity (especially after more than 5 years of use), myopathy Plan I spent 45 minutes reviewing the record and labs, taking a history, examining the patient, discussing the treatment plan, ordering diagnostic work up and documenting in the medical record Orders: Orders XR wrist RT min 3V Today M13.0 - Polyarthritis, unspecified XR wrist LT min 3V Today M13.0 - Polyarthritis, unspecified XR shoulder RT min 2V Today M13.0 - Polyarthritis, unspecified Cyclic Citrullinated Peptide Today M06.9 - Rheumatoid arthritis, unspecified XR knee LT 3V Today M13.0 - Polyarthritis, unspecified XR knee RT 3V Today M13.0 - Polyarthritis, unspecified XR hand RT min 3V Today M13.0 - Polyarthritis, unspecified XR hand LT min 3V Today M13.0 - Polyarthritis, unspecified XR elbow RT min 3V Today M13.0 - Polyarthritis, unspecified XR elbow LT min 3V Today M13.0 - Polyarthritis, unspecified XR shoulder LT min 2V Today M13.0 - Polyarthritis, unspecified Complete Blood Count Auto Diff Today M06.9 - Rheumatoid arthritis, unspecified, Z79.899 - Other [place] [facility] ([facility] drug therapy Comprehensive Met. Panel Today M06.9 - Rheumatoid arthritis, unspecified, Z79.899 - Other museum director (current) drug therapy C Reactive Protein Today M06.9 - Rheumatoid arthritis, unspecified, Z79.899 - Other museum director (current) drug therapy Erythrocyte Sedimentation Rate Today M06.9 - Rheumatoid arthritis, unspecified, Z79.899 - Other [place] [facility] (current) drug therapy Rheumatoid Factor Today M06.9 - Rheumatoid arthritis, unspecified Medications: New hydroxychloroquine (Plaquenil) 200 mg PO BID 180 tabs 1RF M06.9 - Rheumatoid arthritis, unspecified Coding Level of Care Code New Pt Level 4 (17889) Complex EM visit Add On G2211 Diagnoses Rheumatoid arthritis, involving unspecified site, unspecified whether rheumatoid factor present M06.9 Rheumatoid arthritis location: unspecified site Rheumatoid factor presence: unspecified presence Encounter for monitoring of hydroxychloroquine therapy Z51.81; Z79.899
[2025-01-01 10:43] VITALS: BP 140/100; PULSE 62; O2SAT 98; BMI 35.4
== END 2025-01-01 11:22 | disposition home or self-care (01) ==
LOC: HO.RHES 10:30
PROVIDERS: PCP Physician Assistant; Visit Provider Student in an Organized Health Care Education/Training Program
DX: M06.9 Rheumatoid arthritis, unspecified (principal); Z51.81 Encounter for therapeutic drug level monitoring; Z79.899 Other long term (current) drug therapy
CPT/HCPCS: 99204

== ENCOUNTER 2025-01-19 08:14 | Outpatient (REF) | payer OTHER, SELFPAY ==
--- NOTE | ~2025-01-19 | XR_ITS ---
EXAMINATION: X-ray bilateral elbows CLINICAL INFORMATION: Polyarthritis COMPARISON: None TECHNIQUE: Left elbow 3 views. Right elbow 3 views. FINDINGS: Left elbow: No fracture or dislocation. No significant joint space narrowing or marginal osteophytes. No osseous erosion. No abnormal soft tissue calcification. Right elbow: No fracture or dislocation. No significant joint space narrowing or marginal osteophytes. No osseous erosion. No abnormal soft tissue calcification. XR/XR Elbow Solis min 3V IMPRESSION: No acute osseous abnormality. Electronically signed by: Andry Gaviria MD 01/19/2025 10:32 AM EDT
--- NOTE | ~2025-01-19 | XR_ITS ---
EXAMINATION: XR WRIST, bilateral CLINICAL INFORMATION: M13.0 - Polyarthritis, unspecified COMPARISON: None TECHNIQUE: PA, lateral, and oblique views of both wrists FINDINGS: The bones and soft tissues are normal. No fracture. Alignment is anatomic. Joint spaces are maintained. No erosions or soft tissue calcifications. XR/XR Wrist Solis min 3V IMPRESSION: Normal radiographs of the bilateral wrists. Electronically signed by: Lora Jameson MD 01/19/2025 09:05 AM EDT
--- NOTE | ~2025-01-19 | XR_ITS ---
EXAMINATION: X-ray bilateral shoulders CLINICAL INFORMATION: Polyarthritis COMPARISON: None TECHNIQUE: Left shoulder 4 views. Right shoulder 4 views. FINDINGS: Left shoulder: Mild acromioclavicular arthritis. Glenohumeral joint space is maintained. No acute fracture or dislocation. No abnormal soft tissue calcification. Right shoulder: Acromioclavicular and glenohumeral joint space is maintained. No acute fracture or dislocation. No abnormal soft tissue calcification. XR/XR Shoulder Solis min 2V IMPRESSION: LEFT SHOULDER: Mild acromioclavicular arthritis. RIGHT SHOULDER: No acute findings Electronically signed by: Andry Gaviria MD 01/19/2025 09:00 AM EDT
--- NOTE | ~2025-01-19 | XR_ITS ---
EXAMINATION: XR HAND, BILATERAL. CLINICAL INFORMATION: M13.0 - Polyarthritis, unspecified COMPARISON: None TECHNIQUE: PA, lateral, and oblique views both hands. FINDINGS: No acute cortical disruption or malalignment. No bony erosions. There is preservation of the joint spaces. No periosteal bone reaction. No lytic or blastic lesions. No soft tissue calcifications. No subcutaneous emphysema. XR/XR Hand Bilat min 3v IMPRESSION: Normal x-ray, hands. Electronically signed by: Kirill Garcia MD 01/19/2025 09:10 AM EDT
--- NOTE | ~2025-01-19 | XR_ITS ---
EXAMINATION: XR KNEE BILATERAL CLINICAL INFORMATION: M13.0 - Polyarthritis, unspecified COMPARISON: None available. TECHNIQUE: AP bilateral standing view of the knees was obtained. Lateral and and sunrise views both knees. FINDINGS: No acute cortical disruption or malalignment. No lytic or blastic lesions. No suprapatellar bursa joint effusion. No metallic or radiopaque frontal bodies. Mild asymmetric joint space narrowing, medial compartment. No subcutaneous emphysema. XR/XR Knee Solis 4V IMPRESSION: Mild medial compartment osteoarthrosis/osteoarthritis. Electronically signed by: Kirill Garcia MD 01/19/2025 09:01 AM EDT
== END 2025-01-19 08:15 | disposition home or self-care (01) ==
LOC: HO.XRAY 08:14
PROVIDERS: PCP Physician Assistant; Visit Provider Student in an Organized Health Care Education/Training Program
DX: M13.0 Polyarthritis, unspecified (principal)
CPT/HCPCS: 73030; 73080; 73110; 73130; 73564

== ENCOUNTER → 2025-01-19 08:18 | Outpatient (BNV) | payer OTHER, SELFPAY | PROVIDERS: PCP Physician Assistant; Visit Provider Radiology Diagnostic Radiology | DX: M17.0 Bilateral primary osteoarthritis of knee (principal); M19.012 Primary osteoarthritis, left shoulder; M13.0 Polyarthritis, unspecified | CPT/HCPCS: 73030; 73080; 73110; 73130; 73564 ==

== ENCOUNTER 2025-02-09 08:32 | Outpatient (AMB) | payer OTHER, SELFPAY ==
[2025-02-09 08:55] VITALS: BP 150/100; PULSE 65; TEMP 36.7; O2SAT 95; BMI 34.8
--- NOTE | 2025-02-09 08:55 | MHC.PC.OV ---
Vital Signs 02/09/25 08:55 Height 5 ft 1 in Weight 184 lb 2 oz BMI 34.8 BP 150/100 H Blood Pressure Location Lt brachial Position Sitting Pulse 65 Pulse Source Pulse Oximeter Temp 98.1 F Temp Source Temporal Artery Scan Pulse Oximetry (%) 95 Oxygen Delivery Method Room Air Intake Visit Reasons: Annual exam Intake Note: Patient is here today for a physical. 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 Accompanied by: Self / Same As Patient Allergies No Known Allergies Allergy (Verified 02/09/25 09:21) Medication List - Last Reconciled 02/09/25 by Sukh Pena PA-C albuterol sulfate 90 mcg/actuation (Ventolin HFA) 1 inh inhalation QID 30 days fluticasone propionate 50 mcg/actuation (Flonase Allergy Relief) 1 spray intranasal DAILY 30 days hydroxychloroquine (Plaquenil) 200 mg PO BID loratadine 10 mg PO DAILY 30 days meloxicam 15 mg PO DAILY PRN 30 days metronidazole 0.75% 1 appl topical BEDTIME PRN 30 days pyridoxine (vitamin B6) 50 mg PO DAILY 90 days sumatriptan succinate take 1 tab at onset of headache; if no relief may repeat 1 tab after at least 2 hrs; max = 4 tabs/24 hr PO 30 days Tobacco use date assessed: 02/09/25 Dental Screening Dental Screen Date: 02/09/25 Did you have a dental visit in the last 12 months?: No Did you have a dental problem in the last 6 months where you did not have access to dental care?: No Was dental information given to patient?: No HPI Annual exam HPI Details Patient is a 45-year-old male here today for a routine annual physical.? Patient has a past medical history significant for nephrolithiasis, asthma, migraines. .. Hypertension: Patient's blood pressure remains elevated today in office and has been elevated at other office visits. He is willing to start low-dose lisinopril for better blood pressure management. . RA: Patient now followed by professor of german, has been started on Plaquenil though reports it has been too expensive for him and will discontinue its use. He does have mild bilateral elbow/bilateral knee pains . Elevated liver enzymes: Most recent liver enzymes slightly elevated, did review patient's most recent ultrasound of abdomen which did show signs consistent with fatty liver disease. Advised on low cholesterol diet and weight reduction. Migraines: Have been much better with p.r.n. use of sumatriptan. /.. Nephrolithitasis:? Followed by Urology, nephrolithiasis has been stable and has not had any recent renal colic. He is getting surveillance renal ultrasounds. .. Asthma: had asthma as a child , his asthma has been well controlled with only seldom use of his albuterol inhaler. Vaccines: Up-to-date with COVID vaccine,. Up-to-date with tetanus and flu vaccines, . 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 1. Little interest or pleasure in doing things: not at all 2. Feeling down, depressed, or hopeless: several days 3. Trouble falling or staying asleep, or sleeping too much: not at all 4. Feeling tired or having little energy: not at all 5. Poor appetite or overeating: not at all 6. Feeling bad about yourself - or that you are a failure or have let yourself or your family down: not at all 7. Trouble concentrating on things, such as reading the newspaper or watching television: not at all 8. Moving or speaking so slowly that other people could have noticed. Or the opposite - being so fidgety or restless that you have been moving around a lot more than usual: not at all 9. Thoughts that you would be better off or of hurting yourself in some way: not at all Total score: 1 Depression Screening Interpretation: Negative Depression Screening Done: Yes 74348 - PHQ-9 Billing: Yes Source: Developed by Drs. Javid Moraes, Claudine Russell, Richy Patel and colleagues, with an educational monet from [employer]. Thrive Questionnaire Date Thrive assessed: 01/01/25 I am a: Patient What is your living situation today?: I have a steady place to live Within the past 12 months, did the food you bought not last and you didn't have the money to get more?: I choose not to answer this question Within the past 12 months, did you worry whether your food would run out before you got money to buy more?: I choose not to answer this question Do you have trouble paying for medicines?: No Do you have trouble getting transportation to medical appointments?: No Do you have trouble paying your heating and electricity bill?: I choose not to answer this question Do you have trouble taking care of your child, family member or friend?: No Do you have trouble with day-to-day activities such as bathing, preparing meals, shopping, managing finances, etc.?: No Are you currently unemployed and looking for a job?: No Are you interested in more education?: I choose not to answer this question Please select the resources that you would like help with: None Currently or been in a relationship where the following occur: I choose not to answer THRIVE Score: 0 AUDIT C Alcohol Use Questionnaire (AUDIT-C) 1. How often do you have a drink containing alcohol?: Never 3. How often do you have six or more drinks on one occasion?: Never Total Score: 0 MCKAYLA-7 AMB Questionnaire MCKAYLA-7 Date MCKAYLA - 7 assessed: 02/09/25 Feeling nervous, anxious, or on edge: 0 = Not at all Not being able to stop or control worryin = Several days Worrying too much about different things: 1 = Several days Trouble relaxin = Several days Being so restless that it is hard to sit still: 0 = Not at all Becoming easily annoyed or irritable: 0 = Not at all Feeling afraid as if something awful might happen: 1 = Several days Total MCKAYLA-7 score (0-4 normal; 5-9 mild; 10-14 moderate; 15-21 severe): 4 Source: Developed by Drs. Javid Moraes, Claudine Russell, Richy Patel and colleagues, with an educational monet from [employer]. MCKAYLA-7 Assessment Billing MCKAYLA-7 Assessment Tool: MCKAYLA-7 Assessment 12609 ACT Questionnaire In the past 4 weeks, how much of the time did your asthma keep you from getting as much done at work, school or at home?: None of the time During the past 4 weeks, how often have you had shortness of breath?: Not at all During the past 4 weeks, how often did your asthma symptoms wake you up at night or earlier than usual in the morning?: Not at all During the past 4 weeks, how often have you had to use your rescue inhaler or nebulizer medication?: Once a week or less How would you rate your asthma control during the past 4 weeks?: Completely controlled ACT Interpretation: Negative Score: 24 Review of Systems Const Denies body aches, Denies chills, Denies excessive sweating, Denies fatigue, Denies fever(s) and Denies headache(s) Eyes Denies blurry vision ENT Denies dysphagia, Denies vertigo, Denies dizziness, Denies headache(s), Denies hearing loss and Denies tinnitus Card Denies chest pain, Denies chest pain with activity, Denies syncope, Denies irregular heart rhythm and Denies dyspnea Resp Denies chest congestion, Denies cough, Denies hemoptysis, Denies dyspnea and Denies wheezing GI Denies abdominal pain, Denies melena, Denies hematochezia, Denies coffee ground emesis, Denies dysphagia, Denies diarrhea, Denies nausea and Denies vomiting Denies difficulty urinating, Denies dysuria, Denies urinary frequency, Denies urinary hesitancy and Denies urinary urgency Musc Denies arthralgias, Denies limited range of motion, Denies muscle cramps and Denies muscle weakness Skin/Breast Denies rash and Denies skin ulcer Neuro Denies Abnormal speech present, Denies confusion, Denies vertigo, Denies dizziness, Denies syncope, Denies headache(s), Denies memory loss and Denies seizure-like activity Psych Denies anxiety, Denies confusion, Denies depression, Denies memory loss, Denies panic attacks and Denies paranoia Endo Denies excessive sweating, Denies fatigue, Denies flushing, Denies polydipsia and Denies polyuria Aller/Immun Denies wheezing Physical exam (Primary Care) Vital Signs: Last Vital Signs Temp 98.1 F 02/09/25 08:55 Pulse 65 02/09/25 08:55 BP 150/100 H 02/09/25 08:55 Pulse Ox 95 02/09/25 08:55 Oxygen Delivery Method Room Air 02/09/25 08:55 BMI result Body Mass Index 34.8 Tobacco/Smoking Status: Tobacco use Status Tobacco use date assessed 02/09/25 02/09/25 08:59 Patient Tobacco Use Status Never used Tobacco 02/09/25 08:59 e-Cigarette/Vaping Use Never Used 02/09/25 08:59 PHQ-9: PHQ-9 Score PHQ-9: Total score 1 02/09/25 09:42 Depression Screening Interpretation: Negative Thrive Assessment: Date of Thrive Assessment Date Thrive assessed 01/01/25 02/09/25 08:59 Currently or been in a relationship where the following occur: I choose not to answer Const General: cooperative, comfortable, no acute distress, alert and awake; No confusion Orientation/consciousness: oriented to person, oriented to place, patient oriented x3 and No confusion HENMT Head: Yes normocephalic Ears: external ears normal and TM's normal bilaterally Face and sinus: No sinus tenderness Mouth: Normal oral and palatal mucosa present and tongue normal Teeth and gingiva: dentition normal and gingiva normal Throat: Yes posterior oropharynx normal, Yes tonsils normal and Yes uvula midline Eyes Conjunctivae: conjunctivae normal Sclerae: sclerae normal Pupils: Equal, round and reactive pupils present EOM: EOMs intact bilaterally Direct Ophthalmoscopy: No no photophobia Neck Neck: Yes no lymphadenopathy, No tender and Yes no JVD Thyroid: Thyroid normal Carotids: no bruits Chest Chest palpation & inspection: no tenderness Resp Effort & Inspection: normal respiratory effort, no audible wheezes, not labored and no stridor Auscultation: no crackles, no rales, no rhonchi and no wheezes Cardio Jugular venous distension: no JVD Rate: regular rate, not bradycardic and not tachycardic Rhythm: regular rhythm Bruits: no carotid bruits Peripheral pulses: Peripheral pulses 2+ throughout GI Inspection: Yes normal to inspection, No abdominal wall ecchymosis and No visible herniation Palpation (GI): Soft to palpation, nontender, no guarding, not rigid and No hepatosplenomegaly present Auscultation: normoactive bowel sounds General: Yes no CVA tenderness Back/Spine/Pelvis Back: no CVA tenderness and No back tenderness Cervical Spine: cervical ROM normal Thoracic/Lumbar Spine: thoracic and lumbar spine normal to inspection, straight leg raise negative bilaterally, No thoraco-lumbar ROM limited and No lumbar spinal tenderness Skin Lesions: no lesions Rashes: no rashes Wounds: no wounds Neuro General: oriented to person, oriented to place, patient oriented x3, CN's II-XI intact bilaterally and No confusion Cranial nerves: Yes Equal, round and reactive pupils present and Yes Normal accommodation reflex present Cognition (Neuro): normal cognition Speech: No Abnormal speech present Gait exam (Neuro): Normal gait present Motor exam (neuro): 5/5 motor strength present throughout Extrem Right upper extremity: full ROM; no cyanosis Left upper extremity: full ROM; no cyanosis Right lower extremity: no edema Left lower extremity: no edema Psych Appearance: grossly normal Mental Status: mental status grossly normal Affect: normal affect Attitude: cooperative Thought process: Normal thought process present Office Procedures Flu Questionnaire Does the patient have a severe egg allergy?: No Does the patient have severe life threatening allergies?: No Does the patient have a fever or illness today?: No Has the patient ever had Guillain-Alpha Syndrome?: No Has the patient ever had any past reaction to a flu shot?: No Immunizations Fluarix [id number] (PF) 45 mcg (15 mcg x 3)/0.5 mL IM syringe Performing Provider: Sukh Pena PA-C Performing Location[facility] [place] [facility] Administered by: Maritza Martínez CMA on 02/09/25 09:42 Dose Route Admin Location Dispensed Lot Number Expiration Date [employer] Medical Sales Associate 0.5 mL IM Left Deltoid 0.5 mL [id number] 09/21/25 04087-911-33 [employer] VIS Given Date VIS Provided VIS Publication Date 02/09/25 Single Vaccine 24 Eligibility Eligibility Date Funding Source Not [facility] Eligible 02/09/25 Private pneumoc 20-bertha conj-dip cr(PF) 0.5 mL IM syringe Performing Provider: Sukh Pena PA-C Performing Location: [facility] [place] [facility] Administered by: Maritza Martínez CMA on 02/09/25 09:42 Dose Route Admin Location Dispensed Lot Number Expiration Date NDC Medical Sales Associate 0.5 mL IM Left Deltoid 0.5 mL [id number] 11/23/25 [employer] Total Dispensed Waste 0.5 mL 0 % VIS Given Date VIS Provided VIS Publication Date 02/09/25 Single Vaccine 24 Eligibility Eligibility Date Funding Source Not [facility] Eligible 02/09/25 Private Coding Level of Care Code Est Pt Prev Care 40-64y([id number]) Diagnoses Annual physical exam Z00.00 Primary hypertension I10 Hypertension type: primary hypertension Positive anti-CCP test R76.8 Mild intermittent asthma without complication J45.20 Asthma complication type: uncomplicated Asthma persistence: intermittent Asthma severity: mild Fatty liver K76.0 Additional Codes PHQ-9 - 55811 - PHQ-9 Billing: Yes ([id number]) MCKAYLA-7 Assessment Billing - MCKAYLA-7 Assessment Tool: MCKAYLA-7 Assessment 24095 ([id number]) Asthma Control Questionnaire - ACT Interpretation: Negative ([id number]) Assessment & Plan Assessment & Plan (1) Annual physical exam: Code(s): Z00.00 - Encounter for general adult medical examination without abnormal findings Category: Medical Plan: As per HPI (2) HTN (hypertension): Code(s): I10 - Essential (primary) hypertension Category: Medical Qualifiers: Hypertension type: primary hypertension Qualified Code(s): I10 - Essential (primary) hypertension Plan: Patient's blood pressure elevated today in office and has been at previous office visits. Will start lisinopril 5 mg for better blood pressure control. He will start monitoring his blood pressure at home with goal blood pressure to be below 140/90 (3) Positive anti-CCP test: Code(s): R76.8 - Other specified abnormal immunological findings in serum Category: Medical Plan: Continues to have some mild elbow and bilateral hand and bilateral knee pains. He has positive anti CCP. Patient followed by [place] [facility], has been started on Plaquenil though patient reports has been too expensive for him and will stopped using the medication. Will follow back up with Rheumatology (4) Asthma: Code(s): J45.909 - Unspecified asthma, uncomplicated Category: Medical Qualifiers: Asthma complication type: uncomplicated Asthma persistence: intermittent Asthma severity: mild Qualified Code(s): J45.20 - Mild intermittent asthma, uncomplicated Plan: Patient reports his asthma has been well controlled, only p.r.n. use of his albuterol inhaler (5) Fatty liver: Code(s): K76.0 - Fatty (change of) liver, not elsewhere classified Category: Medical Plan: Patient has history of fatty liver disease, most recent liver enzymes slightly elevated. Advised on low cholesterol diet and weight reduction. Orders: Orders Complete Blood Count no Diff Today I10 - Essential (primary) hypertension Microalbumin, Random (w Creat) Today I10 - Essential (primary) hypertension Comprehensive [place]. Panel Fast Today I10 - Essential (primary) hypertension Pneumococcal 20 Immunization Today R76.8 - Other specified abnormal immunological findings in serum, Z23 - Encounter for immunization Lipid Panel Today E78.1 - Pure hyperglyceridemia Influenza [id number] Immunization Today Z23 - Encounter for immunization Medications: New lisinopril 5 mg PO DAILY 90 tabs 1RF 90 days I10 - Essential (primary) hypertension
== END 2025-02-09 09:43 | disposition home or self-care (01) ==
LOC: HO.HMCH 08:33
PROVIDERS: PCP Physician Assistant; Visit Provider Physician Assistant
DX: Z00.00 Encounter for general adult medical examination without abnormal findings (principal); I10 Essential (primary) hypertension; R76.89 Other specified abnormal immunological findings in serum; J45.20 Mild intermittent asthma, uncomplicated; K76.0 Fatty (change of) liver, not elsewhere classified; Z23 Encounter for immunization

== ENCOUNTER → 2025-02-09 08:32 | Outpatient (BNVA) | payer OTHER, SELFPAY | PROVIDERS: PCP Physician Assistant; Visit Provider Physician Assistant | DX: Z00.00 Encounter for general adult medical examination without abnormal findings (principal); I10 Essential (primary) hypertension; M06.9 Rheumatoid arthritis, unspecified; G43.909 Migraine, unspecified, not intractable, without status migrainosus; J45.909 Unspecified asthma, uncomplicated; R76.89 Other specified abnormal immunological findings in serum; J45.20 Mild intermittent asthma, uncomplicated; K76.0 Fatty (change of) liver, not elsewhere classified; Z23 Encounter for immunization; Z74.8 Other problems related to care provider dependency | CPT/HCPCS: 90471; 90472; 90656; 90677; 96127; 96160; 99396 ==